=== PATIENT | male | born 1950 | race Caucasian/White ===

== ENCOUNTER → 2019-11-17 11:34 | Outpatient (CLI) | payer MEDICARE, SELFPAY ==
[2019-11-17 11:43] LABS: Microscopic, Urine URINE MICROSCOPIC (MICROSCOPIC)
[2019-11-17 12:24] LABS: Basophils % 0.1 % (0.1-2.0); Eosinophils # 0.1 K/mm3 (0.0-0.4); Eosinophils % 0.3 % (0.1-12.0); Hematocrit 34.7 % (42.0-52.0); Lymphocytes # 0.7 K/mm3 (0.7-4.5); Lymphocytes % 4.2 % (10-50); Mean Corpuscular HGB Conc 31.7 g/dL (31.8-35.4); Mean Corpuscular Hemoglobin 31.2 pg (27.0-31.2); Mean Corpuscular Volume 98.6 fl (80-94); Mean Platelet Volume 8.8 fl (7.4-10.4); Monocytes # 0.4 K/mm3 (0.1-1.0); Monocytes % 2.8 % (1.7-9.3); Neutrophils # 14.4 K/mm3 (1.8-7.8); Neutrophils % 92.5 % (37.0-80.0); Platelet Count 286 K/mm3 (142-424); Red Blood Count 3.52 M/mm3 (4.60-6.20); Red Cell Distribution Width 13.8 % (11.5-17.5); White Blood Count 15.5 K/mm3 (4.8-10.8)
[2019-11-17 12:31] LABS: MANUAL DIFFERENTIAL MANUAL DIFFERENTIAL (MANUAL DIFF)
[2019-11-17 13:14] LABS: Albumin Level 4.1 g/dl (3.5-5.0); Blood Urea Nitrogen 26 mg/dl (9-20); Calcium 10.2 mg/dl (8.4-10.2); Chloride 95 mmol/L (98-107); Estimated Glomerular Filt Rate 40 ml/min (>60); GFR (African American) 48 ML/MIN (>60); Glucose 118 mg/dl (74-100); Phosphorous 3.8 mg/dl (2.5-4.5); Potassium 4.5 mmoL/L (3.5-5.1); Sodium 141 mmol/L (136-145)
[2019-11-17 13:21] LABS: Anion Gap 12.5 mEq/L (5-15); Carbon Dioxide 38 mmol/L (22.0-30.0)
[2019-11-17 13:41] LABS: Lymphocytes % 4 % (10-50); Monocytes % 2 % (2-9); Neutrophils % 94 % (42-76); Platelet Estimate Normal; RBC Morphology Normal; Total Cells Counted 100
[2019-11-17 13:46] LABS: Appearance,Urine CLEAR (Clear); Bilirubin,Urine Negative (Negative); Blood, Urine Negative (Negative); Color,Urine YELLOW (Yellow); Glucose,Urine (UA) Negative (Negative); Ketones,Urine Negative (Negative); Leukocyte Esterase,Urine 2+ (Negative); Nitrate,Urine POSITIVE (Negative); Protein,Urine Negative (Negative); Urobilinogen,Urine 0.2 EU/dl (0.2)
[2019-11-17 13:53] LABS: Creatinine,Urine Random 79 mg/dL (Not Estab.)
[2019-11-17 13:57] LABS: Amorphous Sediment,Urine 1+ /lpf; Bacteria,Urine 1+ /lpf; WBC,Urine 50-100 #/hpf (0-3)
== END ==
PROVIDERS: Visit Provider Internal Medicine
DX: R79.89 Other specified abnormal findings of blood chemistry (principal); R82.90 Unspecified abnormal findings in urine
CPT/HCPCS: 36415; 80069; 81001; 82570; 84155; 85007; 85025; 87086

== ENCOUNTER 2019-11-20 14:40 | Inpatient (IN) | payer MEDICARE, SELFPAY ==
[2019-11-20] VITALS (8 sets, daily range): BP systolic 154–194; BP diastolic 88–112; PULSE 100–120; RESP 17–22; TEMP 36.5–37.1; O2SAT 94–96; BMI 17.2; BMI 20.9
--- NOTE | 2019-11-20 15:01 | XR_ITS ---
PROCEDURE: XR CHEST PORTABLE CLINICAL HISTORY: SOA, BLE SWELLING COMPARISON: CTAC CTA-CHEST from 08/03/2012 CXR1 CHEST-PORTABLE from 08/05/2012 CXR1 CHEST-PORTABLE from 08/07/2012 CXR1 CHEST-PORTABLE from 08/08/2012 FINDINGS: The cardiomediastinal silhouette and pulmonary vascularity are within normal limits. There are postinflammatory fibrotic changes in the left upper lobe with scarring. Chronic changes are present in the right upper lobe and both lower lobes as well. There is superimposed increased density in the right midlung consistent with pneumonia. There are old left-sided rib fractures No acute bony abnormalities. IMPRESSION: Chronic changes with pulmonary fibrosis and scarring with pneumonia in the right midlung Dictated by: Anton Oneill MD 11/20/2019 15:19 Electronically signed by Anton Oneill MD in [place] 11/20/2019 15:19
[2019-11-20 15:12] LABS: Basophils % 0.1 % (0.1-2.0); Chloride 104 mmol/L (98-107); Eosinophils % 0.1 % (0.1-12.0); Hematocrit 32.5 % (42.0-52.0); Hemoglobin 10.7 g/dL (14.1-18.0); Lymphocytes # 0.3 K/mm3 (0.7-4.5); Lymphocytes % 2.4 % (10-50); Mean Corpuscular Hemoglobin 31.4 pg (27.0-31.2); Mean Corpuscular Volume 95.3 fl (80-94); Mean Platelet Volume 8.3 fl (7.4-10.4); Monocytes # 0.3 K/mm3 (0.1-1.0); Monocytes % 2.1 % (1.7-9.3); Neutrophils # 12.9 K/mm3 (1.8-7.8); Neutrophils % 95.2 % (37.0-80.0); Platelet Count 332 K/mm3 (142-424); Red Blood Count 3.41 M/mm3 (4.60-6.20); Red Cell Distribution Width 13.9 % (11.5-17.5); Sodium 143 mmol/L (136-145); White Blood Count 13.6 K/mm3 (4.8-10.8)
[2019-11-20 15:13] LABS: Potassium 3.4 mmoL/L (3.5-5.1)
[2019-11-20 15:14] LABS: MANUAL DIFFERENTIAL MANUAL DIFFERENTIAL (MANUAL DIFF)
--- NOTE | 2019-11-20 15:14 | PC.NURSE ---
RAD AT BEDSIDE
[2019-11-20 15:15] LABS: Alanine Aminotransferase 37 U/L (12-78); Alkaline Phosphatase 94 U/L (38-126); Aspartate Amino Transferase 41 U/L (17-59); Bilirubin,Total 0.5 mg/dl (0.2-1.3); Blood Urea Nitrogen 21 mg/dl (9-20); Creatinine Clearance Estimated 38 mL/min (50-200); Estimated Glomerular Filt Rate 50 ml/min (>60); GFR (African American) 61 ML/MIN (>60)
[2019-11-20 15:16] LABS: Albumin Level 3.8 g/dl (3.5-5.0); Albumin/Globulin Ratio 1.2 (1.1-1.8); Anion Gap 7.4 mEq/L (5-15); Calcium 9.2 mg/dl (8.4-10.2); Carbon Dioxide 35 mmol/L (22.0-30.0); Globulin 3.3 g/dL (1.3-3.2); Glucose 142 mg/dl (74-100); Total Protein,Serum 7.1 g/dl (6.3-8.2)
[2019-11-20 15:25] LABS: NT Pro Brain Natriuretic Pep. 11600 pg/mL (0-125)
[2019-11-20 15:28] LABS: Troponin I 0.03 ng/ml (0.00-0.034)
[2019-11-20 15:33] LABS: Lymphocytes % 5 % (10-50); Monocytes % 2 % (2-9); Neutrophils % 91 % (42-76); Total Cells Counted 100
[2019-11-20 15:34] LABS: Platelet Estimate Normal; RBC Morphology Normal
--- NOTE | 2019-11-20 15:47 | ECG_ITS ---
APPROVED REPORT Exam: Resting ECG HR:106 bpm ECG Measurements Heart Rate 106 AXES DC 168 P 48 QRSd 78 QRS 77 QT 348 T 78 QTc 462 <Conclusion> Sinus tachycardia Otherwise normal ECG Electronically signed by : Chuy Friend, 11/26/2019 17:16:55
--- NOTE | 2019-11-20 16:01 | HMH.EDSOB ---
ED Disposition Clinical Impression: Community acquired pneumonia, Sepsis, Hypertension, CHF (congestive heart failure) Disposition: Admitted as Observation Condition on Discharge: Good - Critical Care Critical Care Time: No Attestation: On 11/20/19, the high probability of a clinically significant, sudden or life threatening deterioration of the following system(s) required my full and direct attention, intervention and personal management. The time I documented below is in addition to time spent performing reported procedures but includes the following listed in this critical care notation. Medical Decision Making - Medical Records Medical records reviewed: Yes: I reviewed the patient's medical records. - Ten Inquiry Pt receiving controlled substance: No Vital Signs: 11/20/19 14:41 Temperature 98.1 F Temperature Source Oral Pulse Rate [Right Radial] 114 H Respiratory Rate 19 Blood Pressure [Right Arm] 173/112 H Blood Pressure Mean [Right Arm] 132 Blood Pressure Source [Right Arm] Automatic Cuff Blood Pressure Position [Right Arm] Sitting 02 Sat by Pulse Oximetry 96 Oxygen Delivery Method Nasal Cannula Oxygen Flow Rate (LPM) 2 - Lab Data Lab results reviewed: Yes: I reviewed the patient's lab results. Lab Results 11/20/19 14:44: WBC 13.6 H, RBC 3.41 L, Hgb 10.7 L, Hct 32.5 L, MCV 95.3 H, MCH 31.4 H, MCHC 33.0, RDW 13.9, Plt Count 332, MPV 8.3, Neut % (Auto) 95.2 H, Lymph % (Auto) 2.4 L, [place] % (Auto) 2.1, Eos % (Auto) 0.1, Baso % (Auto) 0.1, Neut # (Auto) 12.9 H, Lymph # (Auto) 0.3 L, [place] # (Auto) 0.3, Eos # (Auto) 0.0, Baso # (Auto) 0.0, Total Counted 100, Neutrophils % (Manual) 91 H, Band Neutrophils % 1.0, Lymphocytes % (Manual) 5 L, Monocytes % (Manual) 2, Metamyelocytes % 1.0, Platelet Estimate Normal, RBC Morphology Normal 11/20/19 14:44: Sodium 143, Potassium 3.4 L, Chloride 104, Carbon Dioxide 35 H, Anion Gap 7.4, BUN 21 H, Creatinine 1.40 H, Estimated Creat Clear 38, Estimated GFR 50 L, Est GFR ( Amer) 61, Glucose 142 H, Calcium 9.2, Total Bilirubin 0.5, AST 41, ALT 37, Alkaline Phosphatase 94, Troponin I 0.03, NT-Pro-B Natriuret Pep 27062 H, Total Protein 7.1, Albumin 3.8, Globulin 3.3 H, Albumin/Globulin Ratio 1.2 11/20/19 16:00: Urine Color Yellow, Urine Appearance Clear, Urine pH 6.0, Ur Specific [place] 1.010, Urine Protein Negative, Urine Glucose (UA) Negative, Urine Ketones Negative, Urine Blood Negative, Urine Nitrate Positive, Urine Bilirubin Negative, Urine Urobilinogen 0.2, Ur Leukocyte Esterase 1+ A, Urine WBC 5-10, Ur Squamous Epith Cells Occasional, Urine Bacteria Trace Result diagrams: 11/20/19 14:44 11/20/19 14:44 Orders (Tests/Meds): ED MEDICATIONS Generic Name Dose Route Start Last Admin Trade Name Freq PRN Reason Stop Dose Admin Ceftriaxone Sodium 1 gm/ 50 mls @ 100 mls/hr 11/20/19 16:15 11/20/19 16:31 Sodium Chloride IV 12/04/19 16:14 100 mls/hr Q24H BERNARD Administration Protocol Azithromycin 500 mg/ Sodium 250 mls @ 250 mls/hr 11/20/19 16:15 11/20/19 16:50 Chloride IV 12/04/19 16:14 250 mls/hr Q24H BERNARD Administration Protocol Discontinued Medications Generic Name Dose Route Start Last Admin Trade Name Freq PRN Reason Stop Dose Admin Metoprolol Tartrate 5 mg 11/20/19 16:06 11/20/19 16:31 Metoprolol Tartrate 5mg/5ml Vial IV 11/20/19 16:07 5 mg ONCE ONE Administration ORDERS Category Date Time Status Troponin I Q3H Lab 11/20/19 18:15 Ordered Troponin I Q3H Lab 11/20/19 21:15 Ordered Urine Culture Stat Micro 11/20/19 16:00 Received - Radiology Data #1 Image(s): Chest Preliminary Findings: Abnormal (Right middle lobe pneumonia) - Tissue Perfus/Sepsis Re-Eval Sepsis Re-Evaluation Performed: Yes Date Performed: 11/20/19 Time Performed: 16:03 Medical Decision Narrative: Patient presented with tachypnea and also his white blood cell count 13.6 and with a source of infection this does qualify t
[2019-11-20 16:02] LABS: Microscopic, Urine URINE MICROSCOPIC (MICROSCOPIC)
[2019-11-20 16:10] LABS: Appearance,Urine CLEAR (Clear); Bilirubin,Urine Negative (Negative); Blood, Urine Negative (Negative); Color,Urine YELLOW (Yellow); Glucose,Urine (UA) Negative (Negative); Ketones,Urine Negative (Negative); Leukocyte Esterase,Urine 1+ (Negative); Nitrate,Urine POSITIVE (Negative); Protein,Urine Negative (Negative); Urobilinogen,Urine 0.2 EU/dl (0.2)
[2019-11-20 16:24] LABS: Bacteria,Urine Trace /lpf; Squamous Epithelial Cell,Urine Occasional #/hpf (0-5)
--- NOTE | 2019-11-20 16:44 | PC.NURSE ---
[facility] laborer called back with bed assignment at this time, pt is assigned to room 204
--- NOTE | 2019-11-20 17:48 | PC.NURSE ---
REPORT CALLED TO LILIANE
--- NOTE | 2019-11-20 18:04 | PC.NURSE ---
Addendum entered by Krysten Mitchell, EMT-P 11/20/19 18:06: NEW INFO Original Note: PT HAD 2000CC TOTAL OUT FROM [facility] , HE HAD 1400 WITH INSERTION, ANOTHER 600 AFTER LASIX WAS GIVEN
--- NOTE | 2019-11-20 18:07 | PC.NURSE ---
PT HAD TOTAL OF 2900CC OUT FROM [facility] , HE HAD 1400CC OUT INITIALLY WITH INSERTION THE REST AFTER LASIX WAS GIVEN
--- NOTE | 2019-11-20 18:47 | HMH.HP ---
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 States he is been having to use his inhaler more often with no improvement in symptoms. Cough nonproductive. Afebrile. Worsening fatigue as well. Daughter at bedside with him on interview. In the ER, work-up positive for chest x-ray with right middle lobe consolidation along with significant fibrosis and scarring. Labs positive for leukocytosis, acute kidney injury, severely elevated BNP. Admitted to medicine for further management of sepsis due to community-acquired pneumonia, CHF exacerbation, acute on chronic kidney injury. On interview he complains of abdominal pain from muscle soreness. Has had brisk response to diuresis for his hypertension. Stewart bag with greater than a liter of output. Complains of fatigue, shortness of breath, difficulty sleeping. Denies chest pain, diarrhea, confusion. [facility] History Medical History: Reports:: Chronic Obstructive Pulmonary Disease (COPD), Renal Disease Denies:: Cancer, Congestive Heart Failure (denies or unknown), Diabetes Mellitus Type 1, Diabetes Mellitus Type 2, MRSA *Have you ever received a pneumonia vaccine?: No *Have you received a flu vaccine this season?: No Other Medical History: Reports: Cataracts Amputation: No - *Social History Smoking Status: Former smoker Tobacco Type: cigarettes Alcohol Intake: never *Occupational Status:: other Housing: house Household Members: family *Travel in the last 8 weeks: None Family Hx:: Coronary Artery Disease, Heart Attack, Hypertension Review of Systems - Review of Systems Review of systems:: pertinent systems reviewed and negative unless documented below (14 point review of systems performed, pertinent positives and negatives as per HPI) Meds Home Medications Medication Instructions Recorded Confirmed Type Aclidinium [place] [Tudorza 400 mcg IH DAILY 11/20/19 11/20/19 History Pressair] Albuterol Sulfate [Albuterol 8.5 gm IH DAILY 11/20/19 11/20/19 History Sulfate Hfa] Alendronate Sodium [Alendronate 35 mg PO WEEKLY 11/20/19 11/20/19 History 35mg Tablet] Budesonide/Formoterol Fumarate 2 puffs IH BID 11/20/19 11/20/19 History [Symbicort 160-4.5 Mcg Inhaler] Calcium Carbonate/Vitamin D3 1 each PO DAILY 11/20/19 11/20/19 History [Calcium 600-D3 20Mcg(800 Unit)] Cetirizine HCl [Allergy Relief] 10 mg PO DAILY 11/20/19 11/20/19 History Furosemide [Furosemide 20mg Tab] 20 mg PO DAILY 11/20/19 11/20/19 History Multivitamin 1 each PO DAILY 11/20/19 11/20/19 History Tamsulosin HCl [Flomax 0.4mg 0.4 mg PO HS 11/20/19 11/20/19 History capsule] predniSONE [Prednisone 5mg 5 mg PO DAILY 11/20/19 11/20/19 History Tab] Allergies Allergy/AdvReac Type Severity Reaction Status Date / Time NO KNOWN ALLERGIES Allergy Uncoded 05/10/17 14:23 Exam Vital signs and Labs for Last 24 Hours: Temp Pulse Resp BP Pulse Ox 98.6 F 119 H 22 154/90 H 95 11/20/19 18:31 11/20/19 18:31 11/20/19 18:31 11/20/19 18:31 11/20/19 18:31 Laboratory Results - last 24 hr 11/20/19 14:44: WBC 13.6 H, RBC 3.41 L, Hgb 10.7 L, Hct 32.5 L, MCV 95.3 H, MCH 31.4 H, MCHC 33.0, RDW 13.9, Plt Count 332, MPV 8.3, Neut % (Auto) 95.2 H, Lymph % (Auto) 2.4 L, [place] % (Auto) 2.1, Eos % (Auto) 0.1, Baso % (Auto) 0.1, Neut # (Auto) 12.9 H, Lymph # (Auto) 0.3 L, [place] # (Auto) 0.3, Eos # (Auto) 0.0, Baso # (Auto) 0.0, Total Counted 100, Neutrophils % (Manual) 91 H, Band Neutrophils % 1.0, Lymphocytes % (Manual) 5 L, Monocytes % (Manual) 2, Metamyelocytes % 1.0, Platelet Estimate Normal, RBC Morphology Normal 06/30/20 14:44: Sodium 143, Potassium 3.4 L, Chloride 104, Carbon Dioxide 35 H, Anion Gap 7.4, BUN 21 H, Creatinine 1.40 H, Estimated Creat Clear 38, Estimated GFR 50 L, Est GFR (A
[2019-11-20 18:58] LABS: Troponin I 0.06 ng/ml (0.00-0.034)
--- NOTE | 2019-11-20 19:59 | PC.NURSE ---
pt daughter stated she is bringing his meds in tomorrow am
[2019-11-20 20:18] LABS: Lactic Acid 1.6 mmol/L (0.7-2.1)
[2019-11-20 22:30] LABS: Troponin I 0.07 ng/ml (0.00-0.034)
[2019-11-21] VITALS (18 sets, daily range): BP systolic 142–169; BP diastolic 61–88; PULSE 66–130; RESP 18–20; TEMP 36.4–36.8; O2SAT 85–95; BMI 19.9; BMI 19.8
[2019-11-21 06:57] LABS: Chloride 102 mmol/L (98-107); Potassium 3.7 mmoL/L (3.5-5.1); Sodium 143 mmol/L (136-145)
[2019-11-21 07:00] LABS: Alanine Aminotransferase 30 U/L (12-78); Albumin Level 3.6 g/dl (3.5-5.0); Albumin/Globulin Ratio 1.1 (1.1-1.8); Alkaline Phosphatase 103 U/L (38-126); Anion Gap 5.7 mEq/L (5-15); Aspartate Amino Transferase 23 U/L (17-59); Bilirubin,Total 0.4 mg/dl (0.2-1.3); Blood Urea Nitrogen 23 mg/dl (9-20); Carbon Dioxide 39 mmol/L (22.0-30.0); Creatinine Clearance Estimated 35 mL/min (50-200); Estimated Glomerular Filt Rate 46 ml/min (>60); GFR (African American) 56 ML/MIN (>60); Globulin 3.2 g/dL (1.3-3.2); Total Protein,Serum 6.8 g/dl (6.3-8.2)
[2019-11-21 07:06] LABS: Basophils % 0.1 % (0.1-2.0); Calcium 9.2 mg/dl (8.4-10.2); Eosinophils % 0.1 % (0.1-12.0); Hematocrit 34.2 % (42.0-52.0); Hemoglobin 10.8 g/dL (14.1-18.0); Lymphocytes # 0.5 K/mm3 (0.7-4.5); Mean Corpuscular HGB Conc 31.6 g/dL (31.8-35.4); Mean Corpuscular Hemoglobin 31.1 pg (27.0-31.2); Mean Corpuscular Volume 98.5 fl (80-94); Mean Platelet Volume 8.5 fl (7.4-10.4); Monocytes # 0.4 K/mm3 (0.1-1.0); Monocytes % 2.4 % (1.7-9.3); Neutrophils # 14.6 K/mm3 (1.8-7.8); Neutrophils % 94.5 % (37.0-80.0); Platelet Count 329 K/mm3 (142-424); Red Blood Count 3.47 M/mm3 (4.60-6.20); White Blood Count 15.4 K/mm3 (4.8-10.8)
[2019-11-21 07:08] LABS: MANUAL DIFFERENTIAL MANUAL DIFFERENTIAL (MANUAL DIFF)
[2019-11-21 07:09] LABS: NT Pro Brain Natriuretic Pep. 15600 pg/mL (0-125)
--- NOTE | 2019-11-21 07:11 | HMH.PHAVTE ---
[facility] Pharmacy VTE Monitoring - Patient Demographics Admission date: 11/20/19 Report Date: 11/21/19 Time: 07:12 Allergies/Adverse Reactions: Patient Allergies NO KNOWN ALLERGIES Allergy (Uncoded 05/10/17 14:23) Height: 1.65 m Weight: 54.233 kg Patient Problems: Current Active Problems Community acquired pneumonia (Acute) Sepsis (Acute) Hypertension (Acute) CHF (congestive heart failure) (Acute) Bwuzr-um-ejnzolv kidney injury (Acute) Hypertensive urgency (Acute) - VTE Risk Labs: VTE Related Lab Results Hgb 10.8 g/dL (14.1-18.0) L 11/21/19 06:28 Hct 34.2 % (42.0-52.0) L 11/21/19 06:28 Plt Count 329 K/mm3 (142-424) 11/21/19 06:28 BUN 23 mg/dl (9-20) H 11/21/19 06:28 Creatinine 1.50 mg/dl (0.66-1.25) H 11/21/19 06:28 Estimated Creat Clear 35 mL/min (50-200) 11/21/19 06:28 VTE Score: 6 VTE Risk Level: Moderate Risk Clinical Trial Participant: No - Prophylaxis VTE Prophylaxis Ordered?: Yes Types of VTE Prophylaxis: TEDS Knee High
--- NOTE | 2019-11-21 07:54 | PC.NURSE ---
A&OX4. PT HAS TOLERATED 3LNC T/O SHIFT. PT HAS C/O BECOMING SOA MULTIPLE TIMES THIS SHIFT. PRN DUONEB ADMINISTERED PER JUL. PT ALSO C/O PAIN IN HIS HEAD AND ABD THIS SHIFT. THIS PAIN WAS RELIEVED BY ADMINISTRATION OF BERNARD TYLENOL #3 AT BEDTIME. PT TOLERATED A SNACK AND HAS DRANK FLUIDS WELL. F/C PRESENT DRAINING DARK RACHAEL URINE. +3 PITTING EDEMA PRESENT TO BLE. PT HAS REMAINED IN BED T/O SHIFT. PT HAS RESTED WELL MAJORITY OF SHIFT. VS HAVE REMAINED STABLE T/O SHIFT.
[2019-11-21 08:07] LABS: Glucose 149 mg/dl (74-100)
--- NOTE | 2019-11-21 08:14 | HMH.ACPN2 ---
Internal Medicine - PN: Subj *Date: 11/21/19 *Time: 08:14 Interval history: Overall patient feels slightly better, breathing was better last night after significant diuresis. He notes that after he ate a good breakfast this morning he feels somewhat more full. Exam Vital signs and Labs for Last 24 Hours: Temp Pulse Resp BP Pulse Ox 97.5 F L 101 H 18 142/61 H 94 L 11/21/19 03:55 11/21/19 06:17 11/21/19 03:55 11/21/19 03:55 11/21/19 03:55 Laboratory Results - last 24 hr 11/20/19 14:44: WBC 13.6 H, RBC 3.41 L, Hgb 10.7 L, Hct 32.5 L, MCV 95.3 H, MCH 31.4 H, MCHC 33.0, RDW 13.9, Plt Count 332, MPV 8.3, Neut % (Auto) 95.2 H, Lymph % (Auto) 2.4 L, [place] % (Auto) 2.1, Eos % (Auto) 0.1, Baso % (Auto) 0.1, Neut # (Auto) 12.9 H, Lymph # (Auto) 0.3 L, [place] # (Auto) 0.3, Eos # (Auto) 0.0, Baso # (Auto) 0.0, Total Counted 100, Neutrophils % (Manual) 91 H, Band Neutrophils % 1.0, Lymphocytes % (Manual) 5 L, Monocytes % (Manual) 2, Metamyelocytes % 1.0, Platelet Estimate Normal, RBC Morphology Normal 11/20/19 14:44: Sodium 143, Potassium 3.4 L, Chloride 104, Carbon Dioxide 35 H, Anion Gap 7.4, BUN 21 H, Creatinine 1.40 H, Estimated Creat Clear 38, Estimated GFR 50 L, Est GFR ( Amer) 61, Glucose 142 H, Calcium 9.2, Total Bilirubin 0.5, AST 41, ALT 37, Alkaline Phosphatase 94, Troponin I 0.03, NT-Pro-B Natriuret Pep 85525 H, Total Protein 7.1, Albumin 3.8, Globulin 3.3 H, Albumin/Globulin Ratio 1.2 11/20/19 16:00: Urine Color Yellow, Urine Appearance Clear, Urine pH 6.0, Ur Specific [place] 1.010, Urine Protein Negative, Urine Glucose (UA) Negative, Urine Ketones Negative, Urine Blood Negative, Urine Nitrate Positive, Urine Bilirubin Negative, Urine Urobilinogen 0.2, Ur Leukocyte Esterase 1+ A, Urine WBC 5-10, Ur Squamous Epith Cells Occasional, Urine Bacteria Trace 11/20/19 18:25: Troponin I 0.06 H 11/20/19 20:04: Lactate 1.6 11/20/19 21:12: Troponin I 0.07 H 11/21/19 06:28: WBC 15.4 H, RBC 3.47 L, Hgb 10.8 L, Hct 34.2 L, MCV 98.5 H, MCH 31.1, MCHC 31.6 L, RDW 14.0, Plt Count 329, MPV 8.5, Neut % (Auto) 94.5 H, Lymph % (Auto) 3.0 L, [place] % (Auto) 2.4, Eos % (Auto) 0.1, Baso % (Auto) 0.1, Neut # (Auto) 14.6 H, Lymph # (Auto) 0.5 L, [place] # (Auto) 0.4, Eos # (Auto) 0.0, Baso # (Auto) 0.0 11/21/19 06:28: Sodium 143, Potassium 3.7, Chloride 102, Carbon Dioxide 39 H, Anion Gap 5.7, BUN 23 H, Creatinine 1.50 H, Estimated Creat Clear 35, Estimated GFR 46 L, Est GFR ( Amer) 56 L, Calcium 9.2, Total Bilirubin 0.4, AST 23 D, ALT 30, Alkaline Phosphatase 103, NT-Pro-B Natriuret Pep 80725 H, Total Protein 6.8, Albumin 3.6, Globulin 3.2, Albumin/Globulin Ratio 1.1 I & O for Last 24 hours: Intake & Output 11/18/19 11/19/19 11/20/19 11/21/19 11:59 11:59 11:59 11:59 Intake Total 820 / 820 Output Total 3125 / 3125 Balance -2305 / -2305 Weight 119 lb 9 oz Narrative: Patient is pleasant, talkative, appears cachectic but this apparently is baseline. ENT exam clear. Lungs with rhonchi bilaterally, slightly better air movement from yesterday. Some expiratory wheezes. Heart rate regular. Blood pressure slightly better on carvedilol. Abdomen soft, nontender. Extremities cachectic and clubbed but no perfusion deficits. Neurologically without deficit. Stewart catheter is draining bloody urine. There is some confusion among the nursing staff about when the blood started, patient had a catheter placed in the ER because I could not pee Assessment and Plan (1) Fjyud-mv-ndsmoyr kidney injury Current visit: Yes Status: Acute Category: Medical Code(s): N17.9 - Acute kidney failure, unspecified; N18.9 - Chronic kidney disease, unspecified Creatinine stable this morning after significant diuresis. Follow tomorrow (2) Hypertensive urgency Current visit: Yes Status: Acute Category: Medical Code(s): I16.0 - Hypertensive urgency (3) CHF (congestive heart failure) Current visit: Yes Status: Acute Q
--- NOTE | 2019-11-21 09:35 | HMH.PHAINT ---
MEDICATION RECONCILIATION COMPLETED USING EXTERNAL FILL HISTORY, PHARMACY AND PATIENT
[2019-11-21 09:57] LABS: Lymphocytes % 4 % (10-50); Monocytes % 4 % (2-9); Neutrophils % 92 % (42-76); Platelet Estimate Normal; RBC Morphology Normal; Total Cells Counted 100
--- NOTE | 2019-11-21 17:57 | PC.NURSE ---
ALERT AND ORIENTED X4. DAUGHTER AT BEDSIDE. NO COMPLAINTS OF PAIN. O2 SATURATION LOW 90'S AT REST ON 3.5L-4LNC. PT WEARS 4LNC AT HOME. O2 SATURATION DECREASES TO MID TO HIGH 80'S WITH ANY AMOUNT OF EXERTION AND PT IS EASILY FATIGUED AND WEAK. O2 SAT RECOVERS RELATIVELY QUICKLY. HOWEVER, PT EXPERIENCES ANXIETY DURING THESE EPISODES AND STARTS RAPIDLY BREATHING. EDUCATION PROVIDED ON RELAXATION TECHNIQUES. EDUCATION EFFECTIVE. LUNGS CONTINUE TO HAVE RHONCHI THROUGHOUT. PT HAD TELEHEALTH APPOINTMENT THIS AFTERNOON WITH KIDNEY DR FROM . [facility] CATHETER IS SECURE, PATENT, AND DRAINING DARK RED BLOODY URINE. DR. GONZALES APPEAR AND UROLOGY CONSULT HAS BEEN ORDERED. PT DENIES URINARY PAIN.VSS. NO DISTRESS NOTED. SAFETY MEASURES IN PLACE. WILL CONTINUE TO MONITOR
--- NOTE | 2019-11-21 18:09 | PC.NURSE ---
RT monitored pt on Room air=85%, returned pt to 3L NC
--- NOTE | 2019-11-21 19:01 | PC.NURSE ---
report given to ronnie
--- NOTE | 2019-11-21 23:26 | PC.NURSE ---
initial shift VS reports 85% sats on 3.5 L NC, upon nursing assessment pt appears non labored, pink in color, with O2 sats 91%, will continue to monitor
[2019-11-22] VITALS (13 sets, daily range): BP systolic 102–180; BP diastolic 57–92; PULSE 63–119; RESP 16–22; TEMP 36.6–36.8; O2SAT 88–97
[2019-11-22 05:50] LABS: Eosinophils % 0.1 % (0.1-12.0); Hematocrit 33.9 % (42.0-52.0); Hemoglobin 11.3 g/dL (14.1-18.0); Lymphocytes # 0.5 K/mm3 (0.7-4.5); Lymphocytes % 2.5 % (10-50); Mean Corpuscular HGB Conc 33.3 g/dL (31.8-35.4); Mean Corpuscular Hemoglobin 31.7 pg (27.0-31.2); Mean Corpuscular Volume 95.3 fl (80-94); Mean Platelet Volume 8.4 fl (7.4-10.4); Monocytes # 0.8 K/mm3 (0.1-1.0); Monocytes % 3.8 % (1.7-9.3); Neutrophils # 19.4 K/mm3 (1.8-7.8); Neutrophils % 93.6 % (37.0-80.0); Platelet Count 362 K/mm3 (142-424); Red Blood Count 3.56 M/mm3 (4.60-6.20); White Blood Count 20.8 K/mm3 (4.8-10.8)
[2019-11-22 05:54] LABS: MANUAL DIFFERENTIAL MANUAL DIFFERENTIAL (MANUAL DIFF)
[2019-11-22 05:56] LABS: Chloride 100 mmol/L (98-107)
[2019-11-22 05:57] LABS: Potassium 3.1 mmoL/L (3.5-5.1); Sodium 141 mmol/L (136-145)
[2019-11-22 05:59] LABS: Blood Urea Nitrogen 30 mg/dl (9-20); Creatinine Clearance Estimated 41 mL/min (50-200); Estimated Glomerular Filt Rate 55 ml/min (>60); GFR (African American) 66 ML/MIN (>60)
[2019-11-22 06:00] LABS: Anion Gap 6.1 mEq/L (5-15); Calcium 8.9 mg/dl (8.4-10.2); Carbon Dioxide 38 mmol/L (22.0-30.0); Glucose 167 mg/dl (74-100)
[2019-11-22 08:17] LABS: Coronavirus 19 IgG Antibody Negative (Negative); Coronavirus 19 IgM Antibody Negative (Negative)
--- NOTE | 2019-11-22 09:02 | CT_ITS ---
PROCEDURE: CT CHEST W CON CLINCAL INDICATION: pneumonia, fibrosis evaluate for pheochromocytoma ptosis COMPARISON: CTAC CTA-CHEST from 08/03/2012 XR CHEST PORTABLE from 11/20/2019 CT ABDOMEN PELVIS W CON from 11/22/2019 TECHNIQUE: IV Contrast: 75ml Optiray 350 Axial images obtained with sagittal and coronal reformats. All CT scans at the facility use one or more dose reduction, viz: automated exposure control, ma/kV adjustment per patient size (including targeted exams where dose is matched to indication, i.e. head), or iterative reconstruction technique. FINDINGS: No evidence of mediastinal or hilar mass. Coronary artery calcifications are present. There are severe emphysematous changes with scattered areas of scarring. Chronic opacification is present in the left apex the. There is a nodular area in the left apex surrounded by a rim gas. This measures 4.5 cm not significantly changed from the previous study and could be related to a fungus ball.. Pleural scarring and parenchymal scarring noted in the right apex not significantly changed. Dense calcification noted in areas in the right upper lobe and may be due to areas of granulomas or progressive fibrotic change. Pulmonary fibrotic changes are present in the lower lobes with honeycombing. No effusions. No areas of acute pneumonia suspected. There is superior hilar retraction on the left. No evidence of pulmonary embolus, aortic aneurysm, or dissection. There is thoracic curvature convex right. No acute bony findings. IMPRESSION: 1. No evidence of mediastinal mass. No evidence of thoracic pheochromocytoma. 2. 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
--- NOTE | 2019-11-22 09:04 | HMH.ACPN2 ---
Internal Medicine - PN: Subj *Date: 11/22/19 *Time: 16:35 Interval history: Patient complains of feeling very fatigued. Says that when he gets sick he feels like a man for a few days before getting better. Stable oxygen requirement at this time. Remains hypertensive. Denies any chest pain, nausea, vomiting, productive cough. Remains afebrile. Tolerating p.o. intake. Continues to have bloody urine in his Stewart bag. Denies significant pain in his groin however. On exam today, I questioned his multiple nodular lesions on his skin. He states many family members have them but he is never seen anybody specifically for them. He reports he has had newer ones pop up on his legs and feet over the past several months to year. Exam Vital signs and Labs for Last 24 Hours: Temp Pulse Resp BP Pulse Ox 97.8 F 115 H 22 135/87 88 L 11/22/19 07:36 11/22/19 08:00 11/22/19 07:36 11/22/19 07:36 11/22/19 07:36 Laboratory Results - last 24 hr 11/21/19 06:28: Total Counted 100, Neutrophils % (Manual) 92 H, Lymphocytes % (Manual) 4 L, Monocytes % (Manual) 4, Platelet Estimate Normal, RBC Morphology Normal 11/22/19 05:30: WBC 20.8 H* D, RBC 3.56 L, Hgb 11.3 L, Hct 33.9 L, MCV 95.3 H, MCH 31.7 H, MCHC 33.3, RDW 14.0, Plt Count 362, MPV 8.4, Neut % (Auto) 93.6 H, Lymph % (Auto) 2.5 L, [place] % (Auto) 3.8, Eos % (Auto) 0.1, Baso % (Auto) 0.0 L, Neut # (Auto) 19.4 H, Lymph # (Auto) 0.5 L, [place] # (Auto) 0.8, Eos # (Auto) 0.0, Baso # (Auto) 0.0 11/22/19 05:30: Sodium 141, Potassium 3.1 L, Chloride 100, Carbon Dioxide 38 H, Anion Gap 6.1, BUN 30 H D, Creatinine 1.30 H, Estimated Creat Clear 41, Estimated GFR 55 L, Est GFR ( Amer) 66, Glucose 167 H, Calcium 8.9 11/22/19 05:30: SARS-CoV-2 IgG Ab (Rapid) Negative, SARS-CoV-2 IgM Ab (Rapid) Negative I & O for Last 24 hours: Intake & Output 11/19/19 11/20/19 11/21/19 11/22/19 23:59 23:59 23:59 23:59 Intake Total 120 / 120 1960 / 1960 240 / 240 Output Total 2725 / 2725 2049 / 2324 275 / 275 Balance -2605 / -2605 -90 / -365 -35 / -35 Weight 57.294 kg 54 kg 54.686 kg Microbiology Reports for the Last 24 Hours: Microbiology 11/20/19 16:00 Urine,Catheterized Urine Culture - Preliminary NO GROWTH AFTER 24 HOURS - Constitutional mild distress, thin, cooperative - *Routine HEENT Exam Head: Present: normocephalic Eye: Present: EOMI, PERRL ENT: Present: mucous membranes moist Comments: Cloudy ocular lens consistent with cataract - *Routine Neck Exam Present: supple. Absent: lymphadenopathy - *Routine Respiratory Exam Present: diminished air movement Comments: Diffuse crackles and wheeze bilaterally, consistent with exam from admission - *Routine Cardiovascular Exam Present: RRR. Absent: murmur - *Routine Abdominal Exam Present: soft, normoactive bowel sounds. Absent: tenderness - *Routine Exam Comments: Stewart in place draining frankly bloody urine - *Routine Extremities Exam Absent: cyanosis, clubbing, edema - *Routine Skin Exam Present: warm. Absent: rash Comments: Bilateral axillary freckling, inguinal freckling, too numerous to count caf? [place]it spots of various size from a small as a centimeter to his large as 3 cm x 5 cm or more. 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 Has continued to have high blood pressure. In the setting of neurofibromatosis, cannot rule out p
[2019-11-22 09:12] LABS: Lymphocytes % 1 % (10-50); Monocytes % 2 % (2-9); Neutrophils % 97 % (42-76); Total Cells Counted 100
[2019-11-22 09:13] LABS: Platelet Estimate Normal; RBC Morphology Normal
--- NOTE | 2019-11-22 09:34 | CT_ITS ---
PROCEDURE: CT ABDOMEN PELVIS W CON CLINICAL INDICATION: assess for pheochromocytoma COMPARISON: ABDPELW CT ABD PELVIS WITH CONTRAST from 08/03/2012 CTAC CTA-CHEST from 08/03/2012 TECHNIQUE: IV Contrast: 75ML OPTIRAY 350 Oral Contrast None Axial images obtained with sagittal and coronal reformats. All CT scans at the facility use one or more dose reduction, viz: automated exposure control, ma/kV adjustment per patient size (including targeted exams where dose is matched to indication, i.e. head), or iterative reconstruction technique. FINDINGS: Liver, gallbladder, pancreas, and adrenal glands have an unremarkable appearance. No adrenal mass is evident. There is a stable 1 cm lymph node along the lesser curvature of the stomach. There is masslike enlargement of the left renal pelvis measuring approximately 5 cm. Fairly homogeneous soft tissue density noted in the enlarged left renal pelvis measuring an average of 65 Hounsfield units on both immediate and delayed images. There is some slight decreased attenuation within the mid and anterior aspect of this mass area which does fill with contrast on the delayed images. Unenhanced images were not obtained. This extends into the mid aspect of the left renal calices and the proximal left ureter. There is mild right hydronephrosis and hydroureter. No definite ureteral calculus is evident. The urinary bladder has an abnormal appearance with moderate to severe thickening of the urinary bladder wall. There is a Stewart catheter present. The urinary bladder contents also is somewhat hyperdense with the same density nearly as the left renal pelvis. No significant adenopathy. No acute bony findings. There is no evidence of appendicitis or diverticulitis. There is a mild amount of retained colonic feces. IMPRESSION: Soft tissue mass involving the left renal pelvis extending into the mid calyceal region and proximal ureter. Marked thickening of the urinary bladder wall with increased density of the internal contents. Neoplasm such as transitional cell carcinoma is considered. Hematoma within the left renal pelvis and blood in the urinary bladder could also cause this finding. Cystoscopy suggested for further evaluation. No evidence of adrenal mass. This would be a very unusual presentation for pheochromocytoma as the enhancement would be expected to be much more intense. Mild right hydronephrosis and hydroureter Dictated by: Anton Oneill MD 11/22/2019 17:37 Electronically signed by Anton Oneill MD in [place] 11/22/2019 17:37
--- NOTE | 2019-11-22 11:01 | HMH.PTEV ---
Physical Therapy Evaluation Rehab PT IP Evaluation Start: 11/22/19 09:03 Freq: ONCE Status: Active Protocol: Document 11/22/19 10:56 BHARATHIJOHN (Rec: 11/22/19 11:01 BREANA [id number]) Subjective/History History History This is the initial IP PT evaluation for Chapin Hernandez. Pt is a 69 y/o male admitted to [facility] for sepsis and COPD exacerbation. Pt is end stage COPD, who last few weeks has lived w/ daughter and her family. Pt reports he has 24 hr supp O2 and was just starting to use walker when he was admitted to hospital Subjective Subjective Pt reports c/o feeling dizzy w / supine/sit EOB Rehab PT IP Eval Objective Appearance Patient Behavior Appropriate,Cooperative Patient Orientation Person,Place,Time Difficulty following instructions none Speech Pattern Soft-Spoken Ambulation Patient Able to Ambulate Yes Ambulation Observation IP General Gait Pattern Observation Wide Based Gait,Shuffling Step Ambulation Distance (feet) 3 Ambulation Assistive Device None Ambulation Ability Contact Guard/Hand Hold Balance Ability to Arise Able, uses arms to help Sitting Balance Steady, safe Standing Balance Steady, wide stance Dynamic Sitting Balance Ability Good Dynamic Standing Balance Ability Fair Transfers Bed Transfer Ability Independent Chair Transfer Ability Independent Sit to Stand Bed Transfer Ability Supervision/Stand by,Contact Guard/Hand Hold Sit to Stand Chair Transfer Ability Supervision/Stand by,Contact Guard/Hand Hold Rehab PT IP prob,goals,plan Problems Date of Evaluation: 11/22/19 PT IP Problems Transfers,Gait,Self care, Safety Rehab Potential Rehab Potential Poor Equipment Needs Assistive Devices Rolling / Wheeled Walker Plan PT Intervention Plan Transfers,Gait,Therapeutic Exercise PT Plan Frequency BID Duration LOS Discharge Goals Bed Transfer Ability Independent Sit to Stand Chair Transfer Ability Supervision/Stand by Ambulation Assistive Device Rolling Walker Ambulation Distance (feet) 5 Discharge Plan PT Discharge Plan pt to return home w/ daughter - pt could benefit from HHPT
--- NOTE | 2019-11-22 17:10 | HMH.CONS ---
*Admission Date: 11/20/19 *Reason for consult:: Hematuria and lower urinary tract symptoms *History of present illness: Patient is a 69-year-old white male admitted through the emergency room for exacerbation of COPD and found to have pneumonia. He gives a long history of a BPH type symptoms and has been on the tamsulosin for quite some time. States he may have seen a urologist in the distant past. He states prior to his recent admission he was having a 2-day history of difficulty voiding and voiding only small amounts. A Stewart catheter was placed with some difficulty in the emergency room and this resulted in gross hematuria which has persisted for a couple of days. Patient does give a history of some incontinence and wears 1 briefs per day. He states he has some nighttime incontinence as well which is worse than the daytime leakage. He gives a history of straining to void and a small stream. He currently has a Stewart catheter in place and draining some dark-colored urine. His white count was 13.6 on admission and his creatinine was elevated to 1.4. His white count yesterday had risen to 15.4 creatinine was 1.5. Working diagnosis at this point is pneumonia. His urinalysis on admission did show positive nitrates but the culture is pending. [facility] History Medical History: Reports:: Chronic Obstructive Pulmonary Disease (COPD), Renal Disease Denies:: Cancer, Congestive Heart Failure (denies or unknown), Diabetes Mellitus Type 1, Diabetes Mellitus Type 2, MRSA *Have you ever received a pneumonia vaccine?: No *Have you received a flu vaccine this season?: No Other Medical History: Reports: Cataracts Amputation: No - *Social History Smoking Status: Former smoker Tobacco Type: cigarettes Alcohol Intake: never *Occupational Status:: other Housing: house Household Members: family *Travel in the last 8 weeks: None Family Hx:: Coronary Artery Disease, Heart Attack, Hypertension Review of Systems - Review of Systems Review of systems:: pertinent systems reviewed and negative unless documented below Meds Home Medications Medication Instructions Recorded Confirmed Type Aclidinium [place] [Tudorza 400 mcg IH BID 11/20/19 11/21/19 History Pressair] Alendronate Sodium [Alendronate 35 mg PO WEEKLY 11/20/19 11/20/19 History 35mg Tablet] Budesonide/Formoterol Fumarate 2 puffs IH BID 11/20/19 11/20/19 History [Symbicort 160-4.5 Mcg Inhaler] Calcium Carbonate/Vitamin D3 1 each PO DAILY 11/20/19 11/20/19 History [Calcium 600-D3 20Mcg(800 Unit)] Cetirizine HCl [Allergy Relief] 10 mg PO DAILY 11/20/19 11/20/19 History Furosemide [Furosemide 20mg Tab] 20 mg PO DAILY PRN 11/20/19 11/20/19 History Multivitamin 1 each PO DAILY 11/20/19 11/20/19 History Tamsulosin HCl [Flomax 0.4mg 0.4 mg PO DAILY 11/20/19 11/21/19 History capsule] Ipratropium/Albuterol Sulfate 2 - 3 puff IH Q4HP PRN 11/21/19 11/21/19 History [Combivent Respimat Inh] Roflumilast [Daliresp] 500 mcg PO DAILY 11/21/19 11/21/19 History lisinopriL [Lisinopril 10mg Tab] 10 mg PO DAILY 11/21/19 11/21/19 History predniSONE [Deltasone 10mg tablet] 10 mg PO DAILY 11/21/19 11/21/19 History Metoprolol Tartrate [Lopressor 25 mg PO TID 11/22/19 11/22/19 History 25mg tablet] Allergies Allergy/AdvReac Type Severity Reaction Status Date / Time No Known Allergies Allergy Unverified 11/21/19 07:48 Exam Vital signs and Labs for Last 24 Hours: Temp Pulse Resp BP Pulse Ox 98.3 F 110 H 18 153/72 H 88 L 11/22/19 14:44 11/22/19 16:00 11/22/19 14:44 11/22/19 14:44 11/22/19 14:44 Laboratory Results - last 24 hr 11/22/19 05:30: WBC 20.8 H* D, RBC 3.56 L, Hgb 11.3 L, Hct 33.9 L, MCV 95.3 H, MCH 31.7 H, MCHC 33.3, RDW 14.0, Plt Count 362, MPV 8.4, Neut % (Auto) 93.6 H, Lymph % (Auto) 2.5 L, [place] % (Auto) 3.8, Eos % (Auto) 0.1, Baso % (Auto) 0.0 L, Neut # (Auto) 19.4 H, Lymph # (Auto) 0.5 L, [place] # (Auto) 0.8, Eos # (Auto) 0.0, Baso # (Auto) 0.0,
--- NOTE | 2019-11-22 18:20 | PC.NURSE ---
RT monitored pt during Room air sat=82%, returned pt to 3L NC
[2019-11-23] VITALS (9 sets, daily range): BP systolic 137–171; BP diastolic 73–98; PULSE 80–120; RESP 17–24; TEMP 36.5–36.9; O2SAT 88–97
[2019-11-23 05:49] LABS: Eosinophils % 0.2 % (0.1-12.0); Hemoglobin 10.6 g/dL (14.1-18.0); Lymphocytes # 0.5 K/mm3 (0.7-4.5); Lymphocytes % 2.6 % (10-50); Mean Corpuscular HGB Conc 32.1 g/dL (31.8-35.4); Mean Corpuscular Hemoglobin 31.1 pg (27.0-31.2); Mean Corpuscular Volume 96.9 fl (80-94); Mean Platelet Volume 8.7 fl (7.4-10.4); Monocytes # 0.7 K/mm3 (0.1-1.0); Monocytes % 3.6 % (1.7-9.3); Neutrophils # 18.9 K/mm3 (1.8-7.8); Neutrophils % 93.6 % (37.0-80.0); Platelet Count 354 K/mm3 (142-424); Red Blood Count 3.41 M/mm3 (4.60-6.20); Red Cell Distribution Width 14.2 % (11.5-17.5); White Blood Count 20.2 K/mm3 (4.8-10.8)
[2019-11-23 05:51] LABS: Chloride 102 mmol/L (98-107); Potassium 3.6 mmoL/L (3.5-5.1); Sodium 140 mmol/L (136-145)
[2019-11-23 05:54] LABS: Alanine Aminotransferase 23 U/L (12-78); Albumin Level 3.2 g/dl (3.5-5.0); Albumin/Globulin Ratio 1.1 (1.1-1.8); Alkaline Phosphatase 76 U/L (38-126); Anion Gap 5.6 mEq/L (5-15); Aspartate Amino Transferase 17 U/L (17-59); Bilirubin,Total 0.3 mg/dl (0.2-1.3); Blood Urea Nitrogen 35 mg/dl (9-20); Calcium 8.2 mg/dl (8.4-10.2); Carbon Dioxide 36 mmol/L (22.0-30.0); Creatinine Clearance Estimated 48 mL/min (50-200); Estimated Glomerular Filt Rate 66 ml/min (>60); GFR (African American) 80 ML/MIN (>60); Globulin 2.9 g/dL (1.3-3.2); Glucose 123 mg/dl (74-100); MANUAL DIFFERENTIAL MANUAL DIFFERENTIAL (MANUAL DIFF); Total Protein,Serum 6.1 g/dl (6.3-8.2)
--- NOTE | 2019-11-23 06:18 | PC.NURSE ---
shift summary, pt has hematuria present in romero catheter bag, 24 hour urine collection should end at 1330 today according to report from day shift nurse, upon exertion O2 sats drop to high 80's to low 90's, O2 sat at 0400, at rest was 97 on 3L, pt has rested well throughout the shift
[2019-11-23 07:46] LABS: Lymphocytes % 4 % (10-50); Monocytes % 3 % (2-9); Neutrophils % 93 % (42-76); Platelet Estimate Normal; RBC Morphology Normal; Total Cells Counted 100
--- NOTE | 2019-11-23 08:17 | HMH.DCSUM ---
General - General Admission date:: 11/21/19 Discharge date: 11/23/19 HPI HPI: 69-year-old male with end-stage COPD on 3 to 4 L nasal cannula oxygen continuously who presented to the ER with worsening shortness of breath over the past 2 to 3 days. States he is been having to use his inhaler more often with no improvement in symptoms. Cough nonproductive. Afebrile. Worsening fatigue as well. Daughter at bedside with him on interview. In the ER, work-up positive for chest x-ray with right middle lobe consolidation along with significant fibrosis and scarring. Labs positive for leukocytosis, acute kidney injury, severely elevated BNP. Admitted to medicine for further management of sepsis due to community-acquired pneumonia, CHF exacerbation, acute on chronic kidney injury. On interview he complains of abdominal pain from muscle soreness. Has had brisk response to diuresis for his hypertension. Stewart bag with greater than a liter of output. Complains of fatigue, shortness of breath, difficulty sleeping. Denies chest pain, diarrhea, confusion. Hospital Course Hospital Course: Patient was admitted, broad-spectrum antibiotics and steroids were started because of his COPD exacerbation and evidence of superimposed bacterial bronchopneumonia. Given his presentation of congestive heart failure echocardiogram was done which revealed evidence of significant diastolic dysfunction with preserved ejection fraction. Patient responded to diuretics well, and was started on low-dose beta-raji which he seemed to tolerate well with normal blood pressure response and improvement of his functional status. Patient was found to have blood in Stewart catheter after this was placed in the emergency department because of his immobility on admission and need for significant diuresis. Urology was consulted and felt like it was trauma related, and wanted to examine him in the office and recommended continuing his Stewart catheter because of his history of BPH. 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 Because of this, his uncontrolled hypertension and his fatigue the diagnosis of pheochromocytoma was considered, 24-hour urine testing is currently being finished up and a CT scan of the abdomen was done. This revealed no adrenal masses but did reveal a right-sided pelvic mass with evidence of urinary bladder thickening. This bladder thickening could be from the presence of the Stewart with the hematuria but the pelvic mass is certainly concerning. Patient had evidence of acute kidney injury, this resolved with IV fluids. From a respiratory perspective patient improved very slightly, he is clearly end-stage COPD, follows with pulmonary at [facility], and we will max out his therapy at home on discharge today. Plan will be to add DuoNeb treatments 4 times daily, as well as continue his 3 L nasal cannula oxygen, continue steroids and antibiotics from the hospitalization. We will leave his Stewart catheter in. We will have him see urology next week to review the CAT scan and his catheterization situation. We will see him in our office as a new patient on Tuesday to follow-up his lung issues and the results of the pheochromocytoma testing. He will continue carvedilol as well as his medications on discharge. We will arrange home health for the time being for nursing care for Stewart catheter, PT/OT evaluation and home safety evaluation. Objective Vital signs: Temp Pulse Resp BP Pulse Ox 98.4 F 104 H 22 160/87 H 90 L 11/23/19 08:00 11/23/19 08:00 11/23/19 08:00 11/23/19 08:00 11/23/19 08:00 Narrative: Patient is cachectic, appears much older than his stated age. Oropharynx clear. No JVD. Lungs have poor air movement but better than his admission exam, he has lots of rhonchi, and some expiratory wheezing but slightly better air entry as noted
--- NOTE | 2019-11-23 09:47 | SW/DCPLANNER ---
RECEIVED REFERRAL FOR THIS PATIENT FOR A VALVE TO ACCOMODATE HIS LITER FLOW ON HIS PORTABLE TANK, ALSO HOME HEALTH REFERRAL WAS ORDERED....SPOKE WITH PATIENT AND HE AGREED FOR HOME HEALTH, PATIENT STATED HE WILL USE [facility] AND THEY SERVICES HIS DAUGHTERS AREA... PATIENT IS GOING TO DISCHARGE HOME LATER IN THE AFTERNOON AND WILL BE FOLLOWED BY HOME HEALTH SERVICES..
--- NOTE | 2019-11-23 14:01 | PC.NURSE ---
Pt's daughter aware of pt's discharge today. Daughter states she works until 1600 this afternoon and then will be here to get pt. 1240 - Per Janel in lab, urine should be put into one jug that is marked w/ added agent. Urine placed in correct container. 24 hr urine ended @ 1330 and taken to lab.
[2019-11-28 23:06] LABS: Metanephrine, Ur 111 ug/L (Undefined); Normetanephrine, Ur 244 ug/L (Undefined)
[2019-11-29 11:15] LABS: Metanephrine, U,24hr 216 ug/24 hr (58-276); Normetanephr.,U,24h 476 ug/24 hr (156-729)
[2019-12-01 15:21] LABS: Dopamine, Urine 81 ug/L (Undefined); Epinephrine, U, 24hr 10 ug/24 hr (0-20); Epinephrine, Urine 5 ug/L (Undefined); Norepinephrine, Ur 21 ug/L (Undefined); Norepinephrine,U,24h 41 ug/24 hr (0-135)
[2019-12-01 17:03] LABS: Dopamine, Ur, 24hr 158 ug/24 hr (0-510)
[2019-12-21 09:30] LABS: POC Glucose,Bedside 118 (70-110)
== END 2019-11-23 17:00 | disposition home health service (06) | DRG 871 ==
LOC: ER 16:04 → 2ND 16:53
PROVIDERS: Internal Medicine Adolescent Medicine; Admitting Provider Internal Medicine Adolescent Medicine; Emergency Provider Family Medicine; Visit Provider Internal Medicine Adolescent Medicine
DX: A41.9 Sepsis, unspecified organism (principal); J18.9 Pneumonia, unspecified organism; I50.43 Acute on chronic combined systolic (congestive) and diastolic (congestive) heart failure; J96.20 Acute and chronic respiratory failure, unspecified whether with hypoxia or hypercapnia; J44.1 Chronic obstructive pulmonary disease with (acute) exacerbation; J44.0 Chronic obstructive pulmonary disease with (acute) lower respiratory infection; N17.9 Acute kidney failure, unspecified; N18.9 Chronic kidney disease, unspecified; Z99.81 Dependence on supplemental oxygen; I12.9 Hypertensive chronic kidney disease with stage 1 through stage 4 chronic kidney disease, or unspecified chronic kidney disease; Q85.01 Neurofibromatosis, type 1; R65.20 Severe sepsis without septic shock; Z79.899 Other long term (current) drug therapy
CPT/HCPCS: 36415; 71045; 71260; 74177; 80048; 80053; 81001; 82384; 82962; 83605; 83735; 83835; 83880; 84484; 84585; 85007; 85025; 86328; 87040; 87070; 87086; 87205; 93005; 93306; 94640; 94760; 94761; 96365; 96366; 96375; 97110; 97162; 99284; G0378; J0456; Q9967

== ENCOUNTER → 2019-12-01 11:14 | Outpatient (CLI) | payer MEDICARE, SELFPAY ==
[2019-12-01 12:57] LABS: Coronavirus 19 IgG Antibody Negative (Negative); Coronavirus 19 IgM Antibody Positive (Negative)
== END ==
PROVIDERS: Visit Provider Urology
DX: Z01.818 Encounter for other preprocedural examination (principal)
CPT/HCPCS: 36415; 86328

== ENCOUNTER → 2019-12-02 13:10 | Outpatient (CLI) | payer MEDICARE, SELFPAY ==
[2019-12-03 18:57] LABS: Covid-19 Nasal PCR Sendout UK Not Detected
== END ==
PROVIDERS: PCP Internal Medicine Adolescent Medicine; Visit Provider Internal Medicine Adolescent Medicine
DX: Z03.818 Encounter for observation for suspected exposure to other biological agents ruled out (principal)
CPT/HCPCS: U0003

== ENCOUNTER → 2019-12-11 12:35 | Outpatient (CLI) | payer MEDICARE, SELFPAY ==
[2019-12-11 12:59] LABS: Basophils % 0.3 % (0.1-2.0); Eosinophils # 0.1 K/mm3 (0.0-0.4); Hematocrit 31.5 % (42.0-52.0); Lymphocytes # 0.7 K/mm3 (0.7-4.5); Lymphocytes % 5.2 % (10-50); Mean Corpuscular HGB Conc 31.7 g/dL (31.8-35.4); Mean Corpuscular Volume 97.9 fl (80-94); Mean Platelet Volume 7.6 fl (7.4-10.4); Monocytes # 0.4 K/mm3 (0.1-1.0); Monocytes % 3.4 % (1.7-9.3); Neutrophils # 11.4 K/mm3 (1.8-7.8); Neutrophils % 90.2 % (37.0-80.0); Platelet Count 270 K/mm3 (142-424); Red Blood Count 3.22 M/mm3 (4.60-6.20); Red Cell Distribution Width 14.9 % (11.5-17.5); White Blood Count 12.6 K/mm3 (4.8-10.8)
[2019-12-11 13:10] LABS: MANUAL DIFFERENTIAL MANUAL DIFFERENTIAL (MANUAL DIFF)
[2019-12-11 13:27] LABS: Anisocytosis 1+; Lymphocytes % 6 % (10-50); Monocytes % 3 % (2-9); Neutrophils % 89 % (42-76); Total Cells Counted 100
[2019-12-11 13:28] LABS: Macrocytosis 1+; Platelet Estimate Normal
[2019-12-11 14:15] LABS: Alanine Aminotransferase 16 U/L (12-78); Albumin Level 3.1 g/dl (3.5-5.0); Albumin/Globulin Ratio 1.2 (1.1-1.8); Alkaline Phosphatase 102 U/L (38-126); Aspartate Amino Transferase 19 U/L (17-59); Bilirubin,Total 0.2 mg/dl (0.2-1.3); Blood Urea Nitrogen 18 mg/dl (9-20); Calcium 9.9 mg/dl (8.4-10.2); Chloride 96 mmol/L (98-107); Estimated Glomerular Filt Rate 74 ml/min (>60); GFR (African American) 89 ML/MIN (>60); Globulin 2.5 g/dL (1.3-3.2); Glucose 103 mg/dl (74-100); Potassium 4.3 mmoL/L (3.5-5.1); Sodium 142 mmol/L (136-145); Total Protein,Serum 5.6 g/dl (6.3-8.2)
[2019-12-11 14:45] LABS: Anion Gap 9.3 mEq/L (5-15); Carbon Dioxide 41 mmol/L (22.0-30.0)
== END ==
PROVIDERS: Visit Provider Internal Medicine Adolescent Medicine
DX: I50.9 Heart failure, unspecified (principal)
CPT/HCPCS: 80053; 85007; 85025

== ENCOUNTER → 2019-12-15 10:58 | Outpatient (CLI) | payer MEDICARE, SELFPAY ==
[2019-12-15 12:25] LABS: Coronavirus 19 IgG Antibody Negative (Negative)
[2019-12-15 13:32] LABS: Coronavirus 19 IgM Antibody Positive (Negative)
== END ==
PROVIDERS: Visit Provider Urology
DX: R31.9 Hematuria, unspecified (principal); Z01.818 Encounter for other preprocedural examination
CPT/HCPCS: 36415; 86328

== ENCOUNTER → 2019-12-22 10:53 | Outpatient (CLI) | payer MEDICARE, SELFPAY ==
[2019-12-23 09:55] LABS: Covid-19 Nasal PCR Sendout UK Not Detected
== END ==
PROVIDERS: Visit Provider Urology
DX: Z01.818 Encounter for other preprocedural examination (principal); R31.0 Gross hematuria; N13.30 Unspecified hydronephrosis
CPT/HCPCS: U0003

== ENCOUNTER 2019-12-24 09:17 | Day surgery (SDC) | payer MEDICARE, SELFPAY ==
[2019-12-24] VITALS (10 sets, daily range): BP systolic 92–188; BP diastolic 61–95; PULSE 85–99; RESP 16–22; TEMP 36.4–36.7; O2SAT 98–100; BMI 20.2
--- NOTE | 2019-12-24 12:15 | P.PN_ITS ---
[facility] Anesthesia Checklist - Patient Identification Patient Identification: Arm Band - Structural Data Admitted From: Home Planned Operative Procedure/s: cystoscopy with retrograde pyelogram Consent for Planned Operative Procedure(s) Verified: Yes Verified Documents: Surgical Consent, History and Physical - NPO Status Verified Time NPO: 00:00 - Additional verifications Anesthesia Reactions: No Hx Blood Transfusions: Yes Blood Transfusion Reaction: No - Airway Assessment C-Spine Mobility Assessed: Yes (mp2) TMJ Mobility Assessed: Yes Dentition: Poor Dentition - Neurological Assessment Level of Consciousness: Awake, Alert - Anesthesia Plan Anesthesia Risk discussed: Yes Anesthesia Plan: Verified ASA Class: III Anesthesia Type: General [facility] History I have reviewed the patient's past medical history: Yes Medical History: Reports:: Chronic Obstructive Pulmonary Disease (COPD), Renal Disease Denies:: Cancer, Congestive Heart Failure (denies or unknown), Diabetes Nicolette litus Type 1, Diabetes Mellitus Type 2, MRSA, Seizures *Have you ever received a pneumonia vaccine?: No *Have you received a flu vaccine this season?: No Other Medical History: Reports: Cataracts. Denies: Blood Transfusion Reaction Anesthesia experience/problems:: nac Other Surgeries: Yes: Other Amputation: No - *Social History Last grade of school completed: 9th or 10th Smoking Status: Former smoker Tobacco Type: cigarettes Alcohol Intake: never Substance Use Type: denies use *Occupational Status:: retired Housing: house Household Members: family *Travel in the last 8 weeks: None Family Hx:: Coronary Artery Disease, Heart Attack, Hypertension
--- NOTE | 2019-12-24 13:03 | P.PN_ITS ---
[facility] Anesthesia Record Part I Intake, IV Amount: 900 Estimated blood loss (mL): 0 Urine output (mL): 0 Blood Pressure: 92/61 SaO2: 99 Pulse Rate: 99 Respiratory Rate: 16 Temperature: 98.1 F Patient is:: Drowsy, Stable Stable to PACU at:: 13:00
--- NOTE | 2019-12-24 13:30 | FL_ITS ---
PROCEDURE: FL URETHROCYSTOGRAM RETRO CLINICAL INDICATION: CYSTO IN OR COMPARISON: CT ABDOMEN PELVIS W CON from 11/22/2019 FINDINGS: Fluoroscopy time: 2 minutes and 46 seconds. Select images are submitted from the bilateral retrograde urography. There is mild bilateral hydronephrosis. No obvious filling defects apparent. IMPRESSION: Mild bilateral hydronephrosis Dictated by: Anton Oneill MD 12/24/2019 16:49 Electronically signed by Anton Oneill MD in [place] 12/24/2019 16:49
--- NOTE | 2019-12-24 16:57 | HMH.ANESII ---
[facility] Anesthesia Record Part II Discharge Time: 13:29 Destination: Surgical Day Care (OP Surgery) PACU nurse assessment reviewed?: Yes Patient Condition:: Good Anesthesia Complications:: None Swallowing reflex intact?: Yes Cyanosis?: No Blood Pressure: 128/71 Pulse Rate: 98 Temperature: 98.1 F Mental Status: Alert & Oriented Pain level:: 0 Nausea and/or vomitting:: None Intake, IV Amount: 0
--- NOTE | 2019-12-24 17:25 | HMH.OPNOTE ---
Date of procedure: 12/24/19 Pre-op Diagnosis:: Gross hematuria and urinary retention Post-op Diagnosis:: Same Procedure performed:: Cystoscopy with bilateral retrograde pyelograms, left ureteroscopy, fulguration of bladder and prostate bleeding Surgeon:: Zheng Sosa MD SCRAPER BURRER:: Moody Mike Anesthesia: GETA Estimated blood loss (mL): 3 Clinical Note:: 69-year-old white male with recent gross hematuria and urinary retention presents for urologic evaluation. CT scan during recent hospitalization showed enlarged left renal pelvis with mass-effect. Patient has had a Stewart catheter in since his hospitalization. The hematuria has resolved. Operative findings:: Left renal pelvis showed no evidence of clot or tumor. The left ureter was normal size and caliber without evidence of tumor. The bladder showed severe trabeculation and cellule formation but no evidence of tumor. The right retrograde show J hooking of the distal ureter and no evidence of filling defects. The left retrograde showed that the ureter was severely J-hook and there appeared to be normal filling of the ureter normal renal pelvis as well. Operative note:: Patient taken to the operating room after informed consent was obtained. Is placed operating table in supine position and general anesthesia administered. Preoperative antibiotics and sequential compression devices placed. He was then placed into the dorsolithotomy position and prepped and draped in the standard surgical fashion. The 22 Ousmane passed into the urethra and into the bladder without difficulty. The bladder was examined in a systematic fashion. There was severe trabeculation and cellule formation. The ureteral orifices were well away from the bladder neck with clear reflux of urine. There was a high median lobe but it did not protrude back into the bladder very much. A cone-tip catheter was placed into the left ureter and contrast injected in a retrograde fashion. There was severe J hooking of the distal left ureter but the ureter showed a normal caliber up to the renal pelvis which was dilated. There is no evidence of any filling defects in the ureter or left renal pelvis. The catheter then passed into the right ureteral orifice and contrast injected. There was evidence of J hooking the distal ureter on the right as well the normal course and caliber of the ureter and some moderate right hydro-on the right without evidence of filling defect. A open-ended ureteral catheter then passed into the left ureteral orifice and a sensor guidewire was attempted to be passed into the left ureter but due to the tortuosity of the distal ureter it would not pass. A zip wire was used and it did negotiate the severe tortuosity and it passed into the renal pelvis. We were able to then pass the ureteral catheter over the guidewire which straightened out the ureter. We then replaced the zip wire with the 3 5 sensor guidewire and removed the ureteral catheter. The cystoscope removed and an 04/04 navigator ureteral sheath then passed over the guidewire. Our flexible ureteroscope was then passed through the navigator sheath and into the left renal pelvis. There is no evidence of clot in the left renal pelvis. There is no evidence of tumor in the renal pelvis or in any of the calyces. The ureteroscope then removed removing the sheath as we came out and there is no evidence of any ureteral abnormalities. The 26 Georgian resectoscope sheath then passed into the urethra and are cutting loop was used to cauterize some bullous edema in the back of the bladder which appeared to be possibly source of hemorrhage. The bladder neck and prostatic urethra was then cauterized as well. Scope then removed and a 20 Georgian two-way catheter passed without difficulty. 10 cc placed into the balloon and the patient transported to the recovery room stable condition. No complications. Condition: stable Disposition: same day Specimens:: None C
== END 2019-12-24 14:01 | disposition home or self-care (01) ==
LOC: OR 09:19
PROVIDERS: PCP Internal Medicine Adolescent Medicine; Visit Provider Urology
PROC: (CPT 52354; principal; 2019-12-24 10:45)
DX: R31.0 Gross hematuria (principal); N13.8 Other obstructive and reflux uropathy; R33.9 Retention of urine, unspecified; J44.9 Chronic obstructive pulmonary disease, unspecified; N28.9 Disorder of kidney and ureter, unspecified; I11.0 Hypertensive heart disease with heart failure; I50.9 Heart failure, unspecified; N17.9 Acute kidney failure, unspecified; Q85.01 Neurofibromatosis, type 1; Z82.49 Family history of ischemic heart disease and other diseases of the circulatory system; Z79.899 Other long term (current) drug therapy; Z79.51 Long term (current) use of inhaled steroids; Z87.891 Personal history of nicotine dependence; H26.9 Unspecified cataract
CPT/HCPCS: 52354; 74450; 96374; C1769; J2405

== ENCOUNTER 2020-01-11 14:32 | Observation (INO) | payer MEDICARE, SELFPAY ==
[2020-01-11] VITALS (11 sets, daily range): BP systolic 164–185; BP diastolic 73–100; PULSE 76–136; RESP 16–28; TEMP 36.7–37; O2SAT 90–97; BMI 20.5
--- NOTE | 2020-01-11 14:38 | XR_ITS ---
PROCEDURE: XR CHEST PORTABLE CLINICAL HISTORY: sob Shortness of breath COMPARISON: CR CXR1 CHEST-PORTABLE from 08/07/2012 CR CXR1 CHEST-PORTABLE from 08/08/2012 CR XR CHEST PORTABLE from 11/20/[address] CHEST W CON from 11/22/2019 FINDINGS: The cardiomediastinal silhouette and pulmonary vascularity are within normal limits. COPD with chronic scarring and fibrotic change. There is pleural parenchymal opacity in the left suprahilar region with pleural thickening in the left upper lobe laterally. There is chronic consolidation in the left upper lobe which may be slightly worse from the previous exam of 11/20/2019. There are old left-sided rib fractures. Chronic changes are present in the right upper lobe and right lower lobe with scattered calcified nodules. There is blunting of the right CP angle as before. IMPRESSION: COPD with scarring and chronic pleural parenchymal pathology as described above with chronic consolidation in the left upper lobe which appears slightly worse. Dictated by: Anton Oneill MD 01/11/2020 15:36 Anton Oneill MD in [place] 01/11/2020 15:36
--- NOTE | 2020-01-11 14:47 | ECG_ITS ---
APPROVED REPORT Exam: Resting ECG HR:126 bpm ECG Measurements Heart Rate 126 AXES MA 98 P 49 QRSd 80 QRS 82 QT 328 T 82 QTc 475 <Conclusion> Sinus tachycardia with short MA Otherwise normal ECG Electronically signed by : Chuy Friend, 01/12/2020 05:53:08
--- NOTE | 2020-01-11 15:03 | HMH.EDGENADL ---
ED Disposition Clinical Impression: Healthcare-associated pneumonia, COPD exacerbation Disposition: Admitted as Observation Condition on Discharge: Fair - Critical Care Critical Care Time: No Attestation: On 01/11/20, the high probability of a clinically significant, sudden or life threatening deterioration of the following system(s) required my full and direct attention, intervention and personal management. The time I documented below is in addition to time spent performing reported procedures but includes the following listed in this critical care notation. Medical Decision Making - Medical Records Medical records reviewed: Yes: I reviewed the patient's medical records. MR Comment: Admit 11/21/2019 through 11/23/2019 for pneumonia. Since 11/22/2019, the patient has had positive COVID IgM x2 and negative x1, negative IgG x3, negative PCR x2. He says he was told that the positive IgM test were false positives. - Ten Inquiry Pt receiving controlled substance: No Vital Signs: 01/11/20 14:32 01/11/20 14:49 01/11/20 15:32 Temperature 98.6 F Temperature Source Oral Pulse Rate Pulse Rate [Left Radial] 136 H 125 H 76 Respiratory Rate 16 20 Blood Pressure Blood Pressure [Right Arm] 181/73 H 181/73 H 178/90 H Blood Pressure Mean [Right Arm] 109 109 119 Blood Pressure Source [Right Arm] Automatic Cuff Blood Pressure Position [Right Arm] Sitting Supine Sitting 02 Sat by Pulse Oximetry 93 L 96 97 Oxygen Delivery Method Room Air Room Air Nasal Cannula Oxygen Flow Rate (LPM) 2 01/11/20 16:43 01/11/20 18:08 Temperature 98.1 F Temperature Source Pulse Rate 80 Pulse Rate [Left Radial] 127 H Respiratory Rate 18 Blood Pressure 170/87 H Blood Pressure [Right Arm] 180/88 H Blood Pressure Mean [Right Arm] 118 Blood Pressure Source [Right Arm] Automatic Cuff Blood Pressure Position [Right Arm] Supine 02 Sat by Pulse Oximetry 90 L Oxygen Delivery Method Nasal Cannula Oxygen Flow Rate (LPM) - Lab Data Lab results reviewed: Yes: I reviewed the patient's lab results. Lab Results 01/11/20 15:00: WBC 17.2 H, RBC 3.68 L, Hgb 11.3 L, Hct 34.4 L, MCV 93.5, MCH 30.7, MCHC 32.8, RDW 14.4, Plt Count 396, MPV 8.4, Neut % (Auto) 89.9 H, Lymph % (Auto) 4.5 L, [place] % (Auto) 5.2, Eos % (Auto) 0.2, Baso % (Auto) 0.1, Neut # (Auto) 15.5 H, Lymph # (Auto) 0.8, [place] # (Auto) 0.9, Eos # (Auto) 0.0, Baso # (Auto) 0.0, Total Counted 100, Neutrophils % (Manual) 88 H, Lymphocytes % (Manual) 6 L, Monocytes % (Manual) 5, Eosinophils % (Manual) 1, Platelet Estimate Normal, RBC Morphology Normal 01/11/20 15:00: Sodium 143, Potassium 4.0, Chloride 100, Carbon Dioxide 36 H, Anion Gap 11.0, BUN 16, Creatinine 0.80, Estimated Creat Clear 53, Estimated GFR 96, Est GFR ( Amer) 116, Glucose 98, Calcium 9.5, Total Bilirubin 0.5, AST 28, ALT 22, Alkaline Phosphatase 136 H, Troponin I 0.02, Total Protein 6.9, Albumin 3.6, Globulin 3.3 H, Albumin/Globulin Ratio 1.1 01/11/20 15:00: Lactate 1.5 01/11/20 15:00: SARS-CoV-2 IgG Ab (Rapid) Negative, SARS-CoV-2 IgM Ab (Rapid) Positive A Result diagrams: 01/11/20 15:00 01/11/20 15:00 Orders (Tests/Meds): ED MEDICATIONS Generic Name Dose Route Start Last Admin Trade Name Freq PRN Reason Stop Dose Admin Acetaminophen 650 mg 01/11/20 17:10 01/11/20 18:33 Acetaminophen 325mg Tab PO 02/10/20 17:09 650 mg Q4HP PRN Administration As Needed for Fever or Pain Albuterol/Ipratropium 3 ml 01/11/20 20:00 01/11/20 19:18 Duoneb 3ml Neb IH 02/10/20 19:59 3 ml QIDRT BERNARD Administration Cefepime HCl 2 gm/ Sodium 100 mls @ 100 mls/hr 01/12/20 04:30 Chloride IV 01/25/20 16:29 Q12H BERNARD Protocol Levofloxacin/Dextrose 750 mg in 150 mls @ 100 mls/hr 01/12/20 16:30 Levofloxacin 750mg/150ml Premix IV 01/25/20 16:29 Q24H BERNARD Protocol Vancomycin HCl 1,000 mg/ 250 mls @ 125 mls/hr 01/12/20 11:00 Sodium Chloride IV 01/25/20 16:59 Q18
[2020-01-11 15:10] LABS: Basophils % 0.1 % (0.1-2.0); Eosinophils % 0.2 % (0.1-12.0); Hematocrit 34.4 % (42.0-52.0); Hemoglobin 11.3 g/dL (14.1-18.0); Lymphocytes # 0.8 K/mm3 (0.7-4.5); Lymphocytes % 4.5 % (10-50); Mean Corpuscular HGB Conc 32.8 g/dL (31.8-35.4); Mean Corpuscular Hemoglobin 30.7 pg (27.0-31.2); Mean Corpuscular Volume 93.5 fl (80-94); Mean Platelet Volume 8.4 fl (7.4-10.4); Monocytes # 0.9 K/mm3 (0.1-1.0); Monocytes % 5.2 % (1.7-9.3); Neutrophils # 15.5 K/mm3 (1.8-7.8); Neutrophils % 89.9 % (37.0-80.0); Platelet Count 396 K/mm3 (142-424); Red Blood Count 3.68 M/mm3 (4.60-6.20); Red Cell Distribution Width 14.4 % (11.5-17.5); White Blood Count 17.2 K/mm3 (4.8-10.8)
[2020-01-11 15:11] LABS: MANUAL DIFFERENTIAL MANUAL DIFFERENTIAL (MANUAL DIFF)
[2020-01-11 15:14] LABS: Chloride 100 mmol/L (98-107)
[2020-01-11 15:15] LABS: Sodium 143 mmol/L (136-145)
[2020-01-11 15:17] LABS: Alanine Aminotransferase 22 U/L (12-78); Albumin Level 3.6 g/dl (3.5-5.0); Albumin/Globulin Ratio 1.1 (1.1-1.8); Alkaline Phosphatase 136 U/L (38-126); Aspartate Amino Transferase 28 U/L (17-59); Bilirubin,Total 0.5 mg/dl (0.2-1.3); Blood Urea Nitrogen 16 mg/dl (9-20); Carbon Dioxide 36 mmol/L (22.0-30.0); Creatinine Clearance Estimated 53 mL/min (50-200); Estimated Glomerular Filt Rate 96 ml/min (>60); GFR (African American) 116 ML/MIN (>60); Globulin 3.3 g/dL (1.3-3.2); Total Protein,Serum 6.9 g/dl (6.3-8.2)
[2020-01-11 15:18] LABS: Calcium 9.5 mg/dl (8.4-10.2); Glucose 98 mg/dl (74-100); Lactic Acid 1.5 mmol/L (0.7-2.1)
[2020-01-11 15:19] LABS: Eosinophils % 1 % (0-3); Lymphocytes % 6 % (10-50); Monocytes % 5 % (2-9); Neutrophils % 88 % (42-76); Platelet Estimate Normal; RBC Morphology Normal; Total Cells Counted 100
[2020-01-11 15:29] LABS: Troponin I 0.02 ng/ml (0.00-0.034)
--- NOTE | 2020-01-11 17:00 | PC.NURSE ---
pt and family updated on plan of care
[2020-01-11 17:10] LABS: Coronavirus 19 IgG Antibody Negative (Negative)
[2020-01-11 17:12] LABS: Coronavirus 19 IgM Antibody Positive (Negative)
--- NOTE | 2020-01-11 17:54 | PC.NURSE ---
report called to floor
[2020-01-12] VITALS (11 sets, daily range): BP systolic 154–177; BP diastolic 70–95; PULSE 85–127; RESP 19–30; TEMP 36.1–36.8; O2SAT 88–96; BMI 20.4
--- NOTE | 2020-01-12 02:34 | PC.NURSE ---
Addendum entered by Liza Troy RN 01/12/20 06:14: occasional nonproductive cough noted* Original Note: A&OX4. PT HAS TOLERATED 3L NASAL CANNULA WELL THROUGHOUT SHIFT. PT GETS SHORT OF BREATH WITH EXERTION, BUT HE STATES THAT IS NORMAL FOR HIM. INSPIRATORY RHONCHI NOTED THROUGHOUT. NO COUGH NOTED. NO EDEMA NOTED. +2 PULSES NOTED THROUGHOUT. 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 MCKOY CATH IN PLACE W CLEAR BRIGHT YELLOW URINE DRAINING INTO COLLECTION BAG. NO KINKS NOTED. NO BM THUS FAR, BUT PT REPORTS SEVERAL EPISODES OF FLATUS. ACTIVE BOWEL SOUNDS HEARD IN ALL 4 QUADRANTS. SOFT AND NONTENDER ABDOMEN. PT MOVES INDEPENDENTLY IN BED. PT HAS REMAINED IN CONTACT AND [employer] W EYE PROTECTION THROUGHOUT SHIFT. NO REPORTS OF PAIN THUS FAR. PT HAS REMAINED AFEBRILE THUS FAR. PT CURRENTLY LYING IN BED WITH CALL LIGHT WITHIN REACH. BED IN LOWEST POSITION. VSS. WILL CONTINUE TO MONITOR.
--- NOTE | 2020-01-12 08:37 | HMH.HP ---
*Admission Date: 01/12/20 *Chief complaint: Cough, congestion, shortness of air *History of present illness: Patient states that he thinks he has pneumonia again. He has a history of severe COPD. He now has a 2-day history of sore throat, cough, shortness of breath. Denies fever. He does have diarrhea but no vomiting, abdominal pain, or chest pain. Recently admitted to this hospital for pneumonia. He is a former smoker. Above note per emergency room, patient notes increased sputum production, denies fever, reports no hemoptysis. Has had mild diarrhea at home but no vomiting or abdominal pain or recent ill contacts. He was admitted here approximately 6 weeks ago, coronavirus 19 screening was negative except for a positive IgM, multiple negative IgG testing and negative PCR testing, questionable false positive IgM was considered. Of note in the interval he has had bladder cystoscopy because of questionable bladder thickening on CT scan. Biopsies are pending but the procedure was uncomplicated and patient did well with this procedure. [facility] History I have reviewed the patient's past medical history: Yes Medical History: Reports:: Congestive Heart Failure, Chronic Obstructive Pulmonary Disease (COPD), Hypertension, Renal Disease Denies:: Cancer, Diabetes Mellitus Type 1, Diabetes Mellitus Type 2, MRSA, Seizures *Have you ever received a pneumonia vaccine?: Yes *Have you received a flu vaccine this season?: Yes Other Medical History: Reports: Cataracts. Denies: Blood Transfusion Reaction Other Surgeries: Yes: No Previous Surgery, Other Amputation: No - *Social History Smoking Status: Former smoker Tobacco Type: cigarettes Alcohol Intake: never Substance Use Type: denies use *Occupational Status:: disabled Housing: house Household Members: family *Travel in the last 8 weeks: None Family Hx:: No significant family history Review of Systems - Review of Systems Review of systems:: pertinent systems reviewed and negative unless documented below Significant breathlessness. Mild diarrhea. Otherwise GI and cardiac symptoms negative. Patient is extremely concerned this morning about his blood pressure. Meds Home Medications Medication Instructions Recorded Confirmed Type Aclidinium [place] [Tudorza 400 mcg IH BID 11/20/19 01/11/20 History Pressair] Alendronate Sodium [Alendronate 35 mg PO WEEKLY 11/20/19 01/11/20 History 35mg Tablet] Budesonide/Formoterol Fumarate 2 puffs IH BID 11/20/19 01/11/20 History [Symbicort 160-4.5 Mcg Inhaler] Calcium Carbonate/Vitamin D3 1 each PO DAILY 11/20/19 01/11/20 History [Calcium 600-D3 20Mcg(800 Unit)] Cetirizine HCl [Allergy Relief] 10 mg PO DAILY 11/20/19 01/11/20 History Furosemide [Furosemide 20mg Tab] 20 mg PO DAILY PRN 11/20/19 01/11/20 History Multivitamin 1 each PO DAILY 11/20/19 01/11/20 History Tamsulosin HCl [Flomax 0.4mg 0.4 mg PO DAILY 11/20/19 01/11/20 History capsule] Ipratropium/Albuterol Sulfate 2 - 3 puff IH Q4HP PRN 11/21/19 01/11/20 History [Combivent Respimat Inh] Roflumilast [Daliresp] 500 mcg PO DAILY 11/21/19 01/11/20 History lisinopriL [Lisinopril 10mg Tab] 10 mg PO DAILY 11/21/19 01/11/20 History Ipratropium/Albuterol Sulfate 3 ml IH QID 11/29/19 01/11/20 History [Duoneb 3mL neb] carvediloL [Carvedilol 12.5mg Tab] 12.5 mg PO BID 11/29/19 01/11/20 History predniSONE [Deltasone 20mg 20 mg PO BID 11/29/19 01/11/20 History tablet] Potassium Gluconate [Potassium] 99 mg PO NEEDED PRN 12/19/19 01/11/20 History Finasteride [Proscar 5mg Tablet] 5 mg PO DAILY 01/11/20 01/11/20 History Allergies Allergy/AdvReac Type Severity Reaction Status Date / Time No Known Allergies Allergy Verified 12/24/19 09:55 Exam Vital signs and Labs for Last 24 Hours: Temp Pulse Resp BP Pulse Ox 98.2 F 110 H 24 177/91 H 91 L 01/12/20 08:00 01/12/20 08:00 01/12/20 08:00 01/12/20 08:00 01/12/20 08:00 Laboratory Re
--- NOTE | 2020-01-12 10:40 | P.CONPHA_ITS ---
[facility] Pharmacy VTE Monitoring - Patient Demographics Admission date: 01/12/20 Report Date: 01/12/20 Time: 10:40 Allergies/Adverse Reactions: Patient Allergies No Known Allergies Allergy (Verified 12/24/19 09:55) Height: 1.65 m Weight: 55.537 kg Patient Problems: Current Active Problems Healthcare-associated pneumonia (Acute) COPD exacerbation (Acute) - VTE Risk Labs: VTE Related Lab Results Hgb 11.3 g/dL (14.1-18.0) L 01/11/20 15:00 Hct 34.4 % (42.0-52.0) L 01/11/20 15:00 Plt Count 396 K/mm3 (142-424) 01/11/20 15:00 BUN 16 mg/dl (9-20) 01/11/20 15:00 Creatinine 0.80 mg/dl (0.66-1.25) 01/11/20 15:00 Estimated Creat Clear 53 mL/min (50-200) 01/11/20 15:00 Was VTE Risk Assessment Performed: Yes - Prophylaxis Types of VTE Prophylaxis: TEDS Knee High (KAMERON HOSE ORDERED) Location of Applied Device: Bilateral Lower Extremeties
--- NOTE | 2020-01-12 14:06 | HMH.PHACONS ---
- Pharmacy Consult Date: 01/12/20 Time: 14:07 Referring provider: DR. GONZALES Reason for Consult:: VANCOMYCIN DOSING Allergies and ADEs:: Allergies Allergy/AdvReac Type Severity Reaction Status Date / Time No Known Allergies Allergy Verified 12/24/19 09:55 Home Medications:: Home Medications Medication Instructions Recorded Confirmed Type Aclidinium [place] [Tudorza 400 mcg IH BID 11/20/19 01/11/20 History Pressair] Alendronate Sodium [Alendronate 35 mg PO WEEKLY 11/20/19 01/11/20 History 35mg Tablet] Budesonide/Formoterol Fumarate 2 puffs IH BID 11/20/19 01/11/20 History [Symbicort 160-4.5 Mcg Inhaler] Calcium Carbonate/Vitamin D3 1 each PO DAILY 11/20/19 01/11/20 History [Calcium 600-D3 20Mcg(800 Unit)] Cetirizine HCl [Allergy Relief] 10 mg PO DAILY 11/20/19 01/11/20 History Furosemide [Furosemide 20mg Tab] 20 mg PO DAILY PRN 11/20/19 01/11/20 History Multivitamin 1 each PO DAILY 11/20/19 01/11/20 History Tamsulosin HCl [Flomax 0.4mg 0.4 mg PO DAILY 11/20/19 01/11/20 History capsule] Ipratropium/Albuterol Sulfate 2 - 3 puff IH Q4HP PRN 11/21/19 01/11/20 History [Combivent Respimat Inh] Roflumilast [Daliresp] 500 mcg PO DAILY 11/21/19 01/11/20 History lisinopriL [Lisinopril 10mg Tab] 10 mg PO DAILY 11/21/19 01/11/20 History Ipratropium/Albuterol Sulfate 3 ml IH QID 11/29/19 01/11/20 History [Duoneb 3mL neb] carvediloL [Carvedilol 12.5mg Tab] 12.5 mg PO BID 11/29/19 01/11/20 History predniSONE [Deltasone 20mg 20 mg PO BID 11/29/19 01/11/20 History tablet] Potassium Gluconate [Potassium] 99 mg PO NEEDED PRN 12/19/19 01/11/20 History Finasteride [Proscar 5mg Tablet] 5 mg PO DAILY 01/11/20 01/11/20 History Height: 1.65 m Weight: 55.537 kg Laboratory Results:: Laboratory Results - last 24 hr 01/11/20 15:00: WBC 17.2 H, RBC 3.68 L, Hgb 11.3 L, Hct 34.4 L, MCV 93.5, MCH 30.7, MCHC 32.8, RDW 14.4, Plt Count 396, MPV 8.4, Neut % (Auto) 89.9 H, Lymph % (Auto) 4.5 L, [place] % (Auto) 5.2, Eos % (Auto) 0.2, Baso % (Auto) 0.1, Neut # (Auto) 15.5 H, Lymph # (Auto) 0.8, [place] # (Auto) 0.9, Eos # (Auto) 0.0, Baso # (Auto) 0.0, Total Counted 100, Neutrophils % (Manual) 88 H, Lymphocytes % (Manual) 6 L, Monocytes % (Manual) 5, Eosinophils % (Manual) 1, Platelet Estimate Normal, RBC Morphology Normal 01/11/20 15:00: Sodium 143, Potassium 4.0, Chloride 100, Carbon Dioxide 36 H, Anion Gap 11.0, BUN 16, Creatinine 0.80, Estimated Creat Clear 53, Estimated GFR 96, Est GFR ( Amer) 116, Glucose 98, Calcium 9.5, Total Bilirubin 0.5, AST 28, ALT 22, Alkaline Phosphatase 136 H, Troponin I 0.02, Total Protein 6.9, Albumin 3.6, Globulin 3.3 H, Albumin/Globulin Ratio 1.1 01/11/20 15:00: Lactate 1.5 01/11/20 15:00: SARS-CoV-2 IgG Ab (Rapid) Negative, SARS-CoV-2 IgM Ab (Rapid) Positive A Medical History: Reports:: Congestive Heart Failure, Chronic Obstructive Pulmonary Disease (COPD), Hypertension, Renal Disease Denies:: Cancer, Diabetes Mellitus Type 1, Diabetes Mellitus Type 2, MRSA, Seizures Assessment and Plan (1) COPD exacerbation Current visit: Yes Status: Acute Category: Medical Code(s): J44.1 - Chronic obstructive pulmonary disease with (acute) exacerbation (2) Healthcare-associated pneumonia Current visit: Yes Status: Acute Category: Medical Code(s): J18.9 - Pneumonia, unspecified organism (3) Pulmonary emphysema Current visit: No Status: Acute Category: Medical Code(s): J43.9 - Emphysema, unspecified (4) Hypertension Current visit: No Status: Acute Category: Medical Code(s): I10 - Essential (primary) hypertension - Assessment and plan all Dx Assessment and Plan for all problems:: Age: 69 yo Serum creatinine: 1 mg/dL Height: 65.0 Inches Weight (kg):55.53 KG IBW (kg): 61.50 Dosing wt(kg): 55.5 Estimated Creatinine clearance (ml/min): 54.0 CRCL method: Cockcroft and Gault using ibw(default). Drug selected: Vancomy
--- NOTE | 2020-01-12 16:14 | PC.NURSE ---
Pt is A&O X4, frustrated and somewhat agitated during episodes of SOA today. Pt exhibits obsessive behavior regarding oxygen saturation and wears a portable pulse-ox around his neck which he uses quite frequently to self-monitor. Lung sounds reveal expiratory rhonchi, crackles, and wheezing. Pt complained of severe SOA after administration of breathing tx around 1130 this AM, O2 sat noted to be 94% on [address] Friend contacted and received orders for Roxanol prn. 2 doses have been administered thus far and although pt states that he doesn't feel any different, objectively his breathing appears more regular. Pt complained of head pain X1 this shift and received Tylenol per JUL with favorable results. Skin is C/D/I. No edema noted. F/C is patent and draining clear, yellow urine at bedside to gravity. No BM this shift. Pt can ambulate independently, but reports trouble breathing during ambulation, so pt has remained in bed for the majority of the shift. B/P has been elevated and pt expresses concern along with concluding elevated B/P is the reason for his headache. Frequent education has been given this shift regarding the relation between administration of IV steroids/Albuterol inhalants and elevated HR. Pt is currently resting quietly in bed and has no complaints at this time. Call light within reach. Will continue to monitor.
[2020-01-13] VITALS (11 sets, daily range): BP systolic 149–180; BP diastolic 85–95; PULSE 83–120; RESP 19–24; TEMP 36.6–36.8; O2SAT 89–96; BMI 22.5
--- NOTE | 2020-01-13 04:52 | PC.NURSE ---
Pt has rested well this shift. Pt was moved to a negative pressure room due to receiving neb treatments and pending COVID results. Pt has tolerated 3 LNC this shift. Inspiratory rhonchi and expiratory wheezing heard BL through all lungs bases. Pt has requested mouth swabs t/o this shift due to his mouth feeling dry after taking PRN Roxanol for SOA per JUL. All safety measures in place. No acute changes at this time. Will continue to monitor.
[2020-01-13 08:01] LABS: Eosinophils % 0.1 % (0.1-12.0); Hematocrit 33.7 % (42.0-52.0); Hemoglobin 10.7 g/dL (14.1-18.0); Lymphocytes # 0.5 K/mm3 (0.7-4.5); Lymphocytes % 2.3 % (10-50); Mean Corpuscular HGB Conc 31.7 g/dL (31.8-35.4); Mean Corpuscular Hemoglobin 30.7 pg (27.0-31.2); Mean Platelet Volume 7.9 fl (7.4-10.4); Monocytes # 0.7 K/mm3 (0.1-1.0); Monocytes % 3.2 % (1.7-9.3); Neutrophils # 19.3 K/mm3 (1.8-7.8); Neutrophils % 94.4 % (37.0-80.0); Platelet Count 405 K/mm3 (142-424); Red Blood Count 3.48 M/mm3 (4.60-6.20); Red Cell Distribution Width 14.5 % (11.5-17.5); White Blood Count 20.4 K/mm3 (4.8-10.8)
[2020-01-13 08:07] LABS: MANUAL DIFFERENTIAL MANUAL DIFFERENTIAL (MANUAL DIFF)
[2020-01-13 08:09] LABS: Chloride 104 mmol/L (98-107); Potassium 4.4 mmoL/L (3.5-5.1); Sodium 142 mmol/L (136-145)
[2020-01-13 08:11] LABS: Blood Urea Nitrogen 26 mg/dl (9-20); Creatinine Clearance Estimated 60 mL/min (50-200); Estimated Glomerular Filt Rate 96 ml/min (>60); GFR (African American) 116 ML/MIN (>60)
[2020-01-13 08:12] LABS: Anion Gap 12.4 mEq/L (5-15); Calcium 8.8 mg/dl (8.4-10.2); Carbon Dioxide 30 mmol/L (22.0-30.0); Glucose 134 mg/dl (74-100)
--- NOTE | 2020-01-13 08:34 | HMH.ACPN2 ---
Internal Medicine - PN: Subj *Date: 01/13/20 *Time: 08:34 Interval history: Overnight patient felt better than yesterday afternoon. He had a couple of episodes of significant shortness of air with anxiety although his O2 saturations remained acceptable in the mid 90 range on oxygen therapy. We tried low-dose Roxanol therapy which significantly helped the shortness of air and anxiety, but he declined through the night because of some dry mouth symptoms. Exam Vital signs and Labs for Last 24 Hours: Temp Pulse Resp BP Pulse Ox 98.0 F 104 H 19 151/92 H 96 01/13/20 03:16 01/13/20 03:16 01/13/20 03:16 01/13/20 03:16 01/13/20 03:16 Laboratory Results - last 24 hr 01/13/20 07:37: WBC 20.4 H*, RBC 3.48 L, Hgb 10.7 L, Hct 33.7 L, MCV 97.0 H, MCH 30.7, MCHC 31.7 L, RDW 14.5, Plt Count 405, MPV 7.9, Neut % (Auto) 94.4 H, Lymph % (Auto) 2.3 L, [place] % (Auto) 3.2, Eos % (Auto) 0.1, Baso % (Auto) 0.0 L, Neut # (Auto) 19.3 H, Lymph # (Auto) 0.5 L, [place] # (Auto) 0.7, Eos # (Auto) 0.0, Baso # (Auto) 0.0 01/13/20 07:37: Sodium 142, Potassium 4.4, Chloride 104, Carbon Dioxide 30, Anion Gap 12.4, BUN 26 H D, Creatinine 0.80, Estimated Creat Clear 60, Estimated GFR 96, Est GFR ( Amer) 116, Glucose 134 H, Calcium 8.8 I & O for Last 24 hours: Intake & Output 01/10/20 01/11/20 01/12/20 01/13/20 11:59 11:59 11:59 11:59 Intake Total 1404 / 1404 1864 / 1864 Output Total 950 / 950 400 / 400 Balance 454 / 454 1464 / 1464 Weight 122 lb 7 oz 135 lb 5 oz Microbiology Reports for the Last 24 Hours: Microbiology 01/11/20 15:10 Sputum - Expectorated Sputum Gram Stain - Final 01/11/20 15:10 Sputum - Expectorated Sputum Sputum Culture - Preliminary Serratia marcescens Narrative: Patient is awake, pleasant. Oriented x3. Oropharynx slightly dry but clear, no JVD in his neck. ENT exam otherwise clear. Abdomen soft, nontender. Lungs have poor air movement, rhonchi throughout lung chavez, especially in the anterior bases. Heart rate regular. Clubbing as previously noted. No distal perfusion deficits. Otherwise extremities normal. Neurologic exam nonfocal except for his hard of hearing status. Skin with no acute rashes. Assessment and Plan (1) COPD exacerbation Current visit: Yes Status: Acute Category: Medical Code(s): J44.1 - Chronic obstructive pulmonary disease with (acute) exacerbation (2) Healthcare-associated pneumonia Current visit: Yes Status: Acute Category: Medical Code(s): J18.9 - Pneumonia, unspecified organism (3) Pulmonary emphysema Current visit: No Status: Acute Category: Medical Code(s): J43.9 - Emphysema, unspecified (4) Hypertension Current visit: No Status: Acute Category: Medical Code(s): I10 - Essential (primary) hypertension (5) Dyspepsia Current visit: Yes Status: Acute Category: Medical Code(s): R10.13 - Epigastric pain - Assessment and plan all Dx Assessment and Plan for all problems:: Patient complained of some mild heartburn symptoms overnight. I will start Pepcid therapy today. Patient's pulmonary status slightly improved, culture from sputum is growing Serratia organism which is sensitive to levofloxacin and I will de-escalate therapy to single agent levofloxacin therapy. Assuming coronavirus 19 PCR test is negative later this afternoon plan for DC home tomorrow. I had an extensive conversation with patient this morning about goals of care and his prognosis in regards to his terminal emphysema. Plan will be to initiate hospice care at home, and patient has decided to become DNR status with no mechanical ventilation or CPR or cardioversion.I think this is extremely reasonable and appropriate in his situation. 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 We disc
[2020-01-13 09:45] LABS: Covid-19 Nasal PCR Sendout UK Not Detected
[2020-01-13 10:06] LABS: Lymphocytes % 3 % (10-50); Monocytes % 1 % (2-9); Neutrophils % 96 % (42-76); Platelet Estimate Normal; RBC Morphology Normal; Total Cells Counted 100
--- NOTE | 2020-01-13 18:52 | PC.NURSE ---
ALERT AND ORIENTED X4. PT SAT IN BED ALL SHIFT. LUNGS CONTINUE TO HAVE RHONCHI THROUGHOUT, O2 SAT IN LOW TO MID 90'S ON 3LNC. ABDOMEN IS SOFT, NONTNEDER WITH ACTIVE BS IN ALL QUADS. NO BM THIS SHIFT. MCKOY CATHETER IS SECURE, PATENT, AND DRAINING DARK YELLOW URINE. VSS. NO DISTRESS NOTED. SAFETY MEASURES IN PLACE WILLL CONTINUE TO MONITOR
[2020-01-14] VITALS: BP 147/88; PULSE 100; RESP 16; TEMP 36.6; O2SAT 92
--- NOTE | 2020-01-14 02:39 | PC.NURSE ---
Pt has only slept short period of time thus far during this shift. States he just can't sleep good tonight . Denies soa/pain. Lung sounds remain coarse to crackles. No changes in other body systems noted. Pt voices no needs at this time.
[2020-01-14 03:41] VITALS: BP 155/95; PULSE 107; RESP 16; TEMP 36.5; O2SAT 93
[2020-01-14 05:00] VITALS: BMI 22.5
[2020-01-14 06:07] VITALS: PULSE 103; PULSE 108; O2SAT 96
[2020-01-14 06:49] LABS: Eosinophils % 0.2 % (0.1-12.0); Hematocrit 32.8 % (42.0-52.0); Hemoglobin 10.6 g/dL (14.1-18.0); Lymphocytes # 0.3 K/mm3 (0.7-4.5); Lymphocytes % 1.9 % (10-50); Mean Corpuscular HGB Conc 32.2 g/dL (31.8-35.4); Mean Corpuscular Hemoglobin 31.1 pg (27.0-31.2); Mean Corpuscular Volume 96.7 fl (80-94); Mean Platelet Volume 8.4 fl (7.4-10.4); Monocytes # 0.4 K/mm3 (0.1-1.0); Monocytes % 2.8 % (1.7-9.3); Neutrophils # 13.9 K/mm3 (1.8-7.8); Neutrophils % 95.1 % (37.0-80.0); Platelet Count 354 K/mm3 (142-424); Red Blood Count 3.39 M/mm3 (4.60-6.20); Red Cell Distribution Width 14.5 % (11.5-17.5); White Blood Count 14.7 K/mm3 (4.8-10.8)
[2020-01-14 06:51] LABS: Chloride 105 mmol/L (98-107); Potassium 4.5 mmoL/L (3.5-5.1); Sodium 141 mmol/L (136-145)
[2020-01-14 06:54] LABS: Anion Gap 7.5 mEq/L (5-15); Blood Urea Nitrogen 30 mg/dl (9-20); Calcium 8.8 mg/dl (8.4-10.2); Carbon Dioxide 33 mmol/L (22.0-30.0); Creatinine Clearance Estimated 60 mL/min (50-200); Estimated Glomerular Filt Rate 83 ml/min (>60); GFR (African American) 101 ML/MIN (>60); Glucose 210 mg/dl (74-100)
[2020-01-14 07:07] LABS: MANUAL DIFFERENTIAL MANUAL DIFFERENTIAL (MANUAL DIFF)
--- NOTE | 2020-01-14 07:10 | SW/DCPLANNER ---
Addendum entered by Tori Godfrey 01/14/20 10:02: PATIENTS DAUGHTER HAS REQUESTED HER FATHER TO COME AND STAY WITH HER, I HAVE SENT THE REFERRAL TO [facility]... HE IS GOING HOME AND HOSPICE WILL SEE HIM AT HOME... I HAVE ASKED FOR THEM TO LET ME KNOW IF THEY PICK HIM UP.... Original Note: SENT REFERRAL TO [facility] THIS MORNING TO SEE IF THIS PATIENT IS APPROPRIATE FOR HOSPICE SERVICES AT HOME... WILL FOLLOW UP THIS MORNING WITH AND LET DR GONZALES KNOW IF APPROPRIATE AND WORK ON A DISCHARGE PLAN...
[2020-01-14 08:00] VITALS: BP 150/80; PULSE 102; RESP 17; TEMP 36.7; O2SAT 90
[2020-01-14 08:02] LABS: Hypochromasia 1+; Lymphocytes % 1 % (10-50); Monocytes % 3 % (2-9); Neutrophils % 96 % (42-76); Platelet Estimate Normal; Total Cells Counted 100
--- NOTE | 2020-01-14 08:36 | [facility].DCSUM ---
General - General Admission date:: 01/11/20 Discharge date: 01/14/20 HPI HPI: Patient states that he thinks he has pneumonia again. He has a history of severe COPD. He now has a 2-day history of sore throat, cough, shortness of breath. Denies fever. He does have diarrhea but no vomiting, abdominal pain, or chest pain. Recently admitted to this hospital for pneumonia. He is a former smoker. Above note per emergency room, patient notes increased sputum production, denies fever, reports no hemoptysis. Has had mild diarrhea at home but no vomiting or abdominal pain or recent ill contacts. He was admitted here approximately 6 weeks ago, coronavirus 19 screening was negative except for a positive IgM, multiple negative IgG testing and negative PCR testing, questionable false positive IgM was considered. Of note in the interval he has had bladder cystoscopy because of questionable bladder thickening on CT scan. Biopsies are pending but the procedure was uncomplicated and patient did well with this procedure. Hospital Course Hospital Course: Patient was admitted to the hospital. Broad-spectrum antibiotics were started. Because of patient's positive IgM coronavirus 19 antibody PCR was obtained which was negative. 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 Patient had infiltrate on chest x-ray, and sputum culture was obtained showing Serratia organism species which was sensitive to levofloxacin and patient's antibiotic therapy was de-escalated appropriately. He continued on IV steroids. Leukocytosis worsened transiently the first day and then improved, probably from steroid effect. Patient continued to struggle with cough, congestion and chronic dyspnea. He also had some dyspepsia which was successfully treated with Pepcid. I had a long discussion with patient about his overall poor prognosis given his end-stage emphysema, frequent infections, oxygen dependence, etc. He understands this and elected to change his CODE STATUS to DNR and is interested in pursuing hospice at home. This will be arranged as an outpatient. 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 Plan will be to discharge home today as he is improved and wishes to be discharged. We will send him home on levofloxacin, prednisone and short-term follow-up. Objective Vital signs: Temp Pulse Resp BP Pulse Ox 97.7 F 108 H 16 155/95 H 96 01/14/20 03:41 01/14/20 06:07 01/14/20 03:41 01/14/20 03:41 01/14/20 06:07 no acute distress - *Routine HEENT Exam Head: Present: normocephalic Eye: Present: EOMI, PERRL ENT: Present: mucous membranes moist - *Routine Neck Exam Present: supple - *Routine Respiratory Exam Present: accessory muscle use, prolonged expiratory phase, rhonchi, distant breath sounds. Absent: respiratory distress Comments: Improved air movement over baseline - *Routine Cardiovascular Exam Present: RRR - *Routine Abdominal Exam Present: soft, normoactive bowel sounds. Absent: tenderness - *Routine Extremities Exam Present: clubbing. Absent: cyanosis, edema - *Routine Skin Exam Present: warm. Absent: rash - *Routine Neurological Exam Present: alert, oriented X3 Hard of hearing and gross motor weakness noted but symmetric - Detailed Eye Exam Eyelids: Bilateral normal inspection Results Labs on day of discharge: Labs from last 24 hours 01/14/20 01/14/20 01/13/20 06:09 06:09 07:37 WBC 14.7 H D RBC 3.39 L Hgb 10.6 L Hct 32.8 L MCV 96.7 H MCH 31.1 MCHC 32.2 RDW 14.5 Plt Count 354 MPV 8.4 Neut % (Auto) 95.1 H Lymph % (Auto) 1.9 L [place] % (Auto) 2.8 Eos % (Auto) 0.2 Baso % (Auto) 0.0 L Neut # (Aut
--- NOTE | 2020-01-14 10:08 | [facility].PHAINT ---
DISCHARGE COUNSELING-DISCUSSED DISCHARGE MEDICATIONS WITH PATIENT INCLUDING ABX, PEPCID, AND DOSE CHANGE OF PREDNISONE.
[2020-01-14 10:20] VITALS: O2SAT 87
[2020-01-14 10:27] VITALS: PULSE 123; PULSE 126
== END 2020-01-14 11:00 | disposition hospice, home (50) ==
LOC: ER 16:49 → 2ND 19:32
PROVIDERS: Admitting Provider Emergency Medicine; Emergency Provider Emergency Medicine; PCP Internal Medicine Adolescent Medicine; Visit Provider Internal Medicine Adolescent Medicine
DX: J18.9 Pneumonia, unspecified organism (principal); Y95 Nosocomial condition; J43.9 Emphysema, unspecified; Z86.19 Personal history of other infectious and parasitic diseases; Z87.891 Personal history of nicotine dependence; I50.9 Heart failure, unspecified; Z79.899 Other long term (current) drug therapy; Z79.52 Long term (current) use of systemic steroids; I11.0 Hypertensive heart disease with heart failure
CPT/HCPCS: 71045; 80048; 80053; 83605; 84484; 85007; 85025; 86328; 87040; 87070; 87077; 87186; 87205; 93005; 94640; 94761; 96367; 96374; 99285; G0378; J1956; J2405; J3370; U0003